=== PATIENT | female | born 1995 | race Two or more races ===

== ENCOUNTER 2016-10-24 14:07 | Emergency (ER) | payer BC ==
[~2016-10-24] VITALS: Ht 152.4 cm; Wt 78.0 kg
[~2016-10-24 14:07] MED LIST: LEVE500T6 PO
--- NOTE | 2016-10-24 14:17 | PHYS DOC ---
Past Medical History Past Medical History: Anxiety, Asthma, Seizure Additional Past Medical Histor: EPILEPSY Past Surgical History: No Surgical History Alcohol Use: None Drug Use: None Adult General Chief Complaint Chief Complaint: seizure HPI HPI Patient is a 21 year old female with a long-standing history of seizures who presents with one generalized seizure just prior to arrival while at work lasting less than 5 minutes was postictal and now is mentating normally. Denies headache or blurry vision. No trauma to the head. Patient says she ran out of her seizure medication yesterday but is not sure of the name. Review of Systems Review of Systems Constitutional: Denies fever or chills [] Eyes: Denies change in visual acuity, redness, or eye pain [] HENT: Denies nasal congestion or sore throat [] Respiratory: Denies cough or shortness of breath [] Cardiovascular: No additional information not addressed in HPI [] GI: Denies abdominal pain, nausea, vomiting, bloody stools or diarrhea [] : Denies dysuria or hematuria [] Musculoskeletal: Denies back pain or joint pain [] Integument: Denies rash or skin lesions [] Neurologic: Denies headache, focal weakness or sensory changes [] Endocrine: Denies polyuria or polydipsia [] Current Medications Current Medications Current Medications Medications (Trade) Dose Ordered Sig/Sridhar Start Time Stop Time Status Last Admin Dose Admin Levetiracetam 1000 mg/Sodium Chloride 110 ml @ 440 mls/hr 1X ONCE 10/24/16 15:00 10/24/16 15:14 DC 10/24/16 15:00 440 MLS/HR Lorazepam (Ativan) 0.5 mg 1X ONCE 10/24/16 14:30 10/24/16 14:31 DC 10/24/16 15:00 0.5 MG Allergies Allergies Allergies Coded Allergies Type Severity Reaction Last Updated Verified naproxen Allergy Intermediate 05/21/15 Yes Physical Exam Physical Exam Constitutional: Well developed, well nourished, no acute distress, non-toxic appearance. [] HENT: Normocephalic, atraumatic, bilateral external ears normal, oropharynx moist, no oral exudates, nose normal. No tongue laceration[] Eyes: PERRLA, EOMI, conjunctiva normal, no discharge. [] Neck: Normal range of motion, no tenderness, supple, no stridor. [] Cardiovascular:Heart rate regular rhythm, no murmur [] Lungs & Thorax: Bilateral breath sounds clear to auscultation [] Abdomen: Bowel sounds normal, soft, no tenderness, no masses, no pulsatile masses. [] Skin: Warm, dry, no erythema, no rash. [] Back: No tenderness, no CVA tenderness. [] Extremities: No tenderness, no cyanosis, no clubbing, ROM intact, no edema. [] Neurologic: Alert and oriented X 3, normal motor function, normal sensory function, no focal deficits noted. [] Psychologic: Affect normal, judgement normal, mood normal. [] Current Patient Data Vital Signs Vital Signs Date Time Temp Pulse Resp B/P (MAP) Pulse Ox O2 Delivery O2 Flow Rate FiO2 10/24/16 14:18 98.5 71 18 119/57 (77) 97 Room Air 98.5 Lab Values Laboratory Tests Test 10/24/16 14:37 10/24/16 14:38 POC Urine HCG, Qualitative Hcg negative (Negative) POC Hemoglobin 13.3 g/dL (12-15) POC Hematocrit 39 % (36-40) POC Sodium 142 mmol/L (135-145) POC Potassium 4.1 mmol/L (3.5-5.0) POC Chloride 105 mmol/L (98-110) POC Total CO2 25 mmol/L (23-32) Anion Gap 17 mmol/L (6-14) H POC Blood Urea Nitrogen 8 mg/dL (8-26) POC Creatinine 0.7 mg/dL (0.5-1.4) Glucose Level 82 mg/dL (70-99) POC Ionized Calcium (Juan Carlos) 1.17 mmol/L (1.13-1.32) Laboratory Tests 10/24/16 14:38 EKG EKG [] Radiology/Procedures Radiology/Procedures [] Course & Med Decision Making Course & Med Decision Making Pertinent Labs and Imaging studies reviewed. (See chart for details) Plan check i-STAT and urine . Plan to confirm medication she supposed to be on ever son here and write her prescription.[ Up-to-date [id number] nurse's discussed the case with the patient and contacted pharmacies and apparently the patient supposed to be on Keppra but has been taking her mother's seizure medications so we will load her with Keppra and write her prescription for the same.] Brielle Disclaimer Dragon Disclaimer This electronic medical record was generated, in whole or in part, using a voice recognition dictation system. Departure Departure Impression: Primary Impression: Seizures Additional Impression: Medical non-compliance Disposition: HOME, SELF-CARE Condition: STABLE Referrals: JUAN RAMON GUPTA MD (PCP) Patient Instructions: Seizure, Adult, [id number] Scripts Levetiracetam (KEPPRA) 500 Mg Tablet 500 MG PO BID, #60 TAB 3 Refills Prov: DEDRICK BOWMAN MD 10/24/16 Problem Qualifiers DEDIRCK BOWMAN MD Oct 24, 2016 14:17
[2016-10-24 14:18] VITALS: BP 119/57
[2016-10-24] MEDS ORDERED: LEVE500T56 PO (14:45)
[2016-10-24 14:51] LABS: POTASSIUM ISTAT 4.1 mmol/L (3.5-5.0)
== END 2016-10-24 15:40 | disposition home or self-care (01) ==
LOC: ER 14:07
DX: G40.909 Epilepsy, unspecified, not intractable, without status epilepticus (principal); F41.9 Anxiety disorder, unspecified; J45.909 Unspecified asthma, uncomplicated; Z91.19 Patient's noncompliance with other medical treatment and regimen; Z88.8 Allergy status to other drugs, medicaments and biological substances
CPT/HCPCS: 80047; 81025; 96374; 96375; 99284; J1953; J2060; 36415

== ENCOUNTER 2017-01-25 03:19 | Emergency (ER) | payer BC ==
[~2017-01-25] VITALS: Ht 152.4 cm; Wt 78.0 kg
[~2017-01-25 03:19] MED LIST changes: +LEVE500T56 PO
[2017-01-25 04:45] VITALS: BP 103/65
[2017-01-25] MEDS ORDERED: KETOROLAC 60 MG/2 ML INJ. IM ONE (05:00)
[2017-01-25] MEDS ORDERED: PROMETHAZINE IM 25 MG/ML VIAL IM ONE (05:00)
--- NOTE | 2017-01-25 06:25 | PHYS DOC ---
Past Medical History Past Medical History: Anxiety, Asthma, Seizure Additional Past Medical Histor: EPILEPSY Past Surgical History: Other Additional Past Surgical Histo: WISDOM TEETH Alcohol Use: None Drug Use: Marijuana Adult General Chief Complaint Chief Complaint: GENERALIZED BODY ACHES HPI HPI Patient is a 21 year old female with migraines since 13 y/o. she gets daily migraines x 3 weeks. she has appt with her doctor in february for migraines. she uses ibuprofen and tylenol with benadryl currently. she has also had 2 days of nausea and diarrhea. daughter has been sick as well. no neck pain, no fever. Review of Systems Review of Systems Constitutional: Denies fever or chills [] Eyes: Denies change in visual acuity, redness, or eye pain [] HENT: Denies nasal congestion or sore throat +headache, no neck pain Respiratory: Denies cough or shortness of breath [] Cardiovascular: No additional information not addressed in HPI [] GI:+nausea and diarrhea : Denies dysuria or hematuria [] Musculoskeletal: Denies back pain or joint pain [] Integument: Denies rash or skin lesions [] Neurologic: Denies headache, focal weakness or sensory changes [] Endocrine: Denies polyuria or polydipsia [] All other systems were reviewed and found to be within normal limits, except as documented in this note. Current Medications Current Medications Current Medications Medications (Trade) Dose Ordered Sig/Sridhar Start Time Stop Time Status Last Admin Dose Admin Ketorolac Tromethamine (Toradol Im) 60 mg 1X ONCE 01/25/17 05:00 01/25/17 05:01 DC 01/25/17 04:52 60 MG Promethazine HCl (Phenergan Im) 25 mg 1X ONCE 01/25/17 05:00 01/25/17 05:01 DC 01/25/17 04:52 25 MG Allergies Allergies Allergies Coded Allergies Type Severity Reaction Last Updated Verified naproxen Allergy Intermediate NAUSEA VOMITING 01/25/17 Yes Physical Exam Physical Exam Constitutional: Well developed, well nourished, no acute distress, non-toxic appearance. [] HENT: Normocephalic, atraumatic, bilateral external ears normal, oropharynx moist, no oral exudates, nose normal. +normal chin to chest. no stiff neck Eyes: PERRLA, EOMI, conjunctiva normal, no discharge. [] Neck: Normal range of motion, no tenderness, supple, no stridor. [] Cardiovascular:Heart rate regular rhythm, no murmur [] Lungs & Thorax: Bilateral breath sounds clear to auscultation [] Abdomen: Bowel sounds normal, soft, no tenderness, no masses, no pulsatile masses. [] Skin: Warm, dry, no erythema, no rash. [] Back: No tenderness, no CVA tenderness. [] Extremities: No tenderness, no cyanosis, no clubbing, ROM intact, no edema. [] Neurologic: Alert and oriented X 3, normal motor function, normal sensory function, no focal deficits noted. [] Psychologic: Affect normal, judgement normal, mood normal. [] Current Patient Data Vital Signs Vital Signs Date Time Temp Pulse Resp B/P (MAP) Pulse Ox O2 Delivery O2 Flow Rate FiO2 01/25/17 03:30 98.8 85 20 110/63 (79) 98 Room Air 98.8 Lab Values Laboratory Tests Test 01/25/17 04:05 POC Urine HCG, Qualitative Hcg negative (Negative) EKG EKG [] Radiology/Procedures Radiology/Procedures [] Course & Med Decision Making Course & Med Decision Making Pertinent Labs and Imaging studies reviewed. (See chart for details) pt responded well to toradol and phenergan. will try this at home. clear liquids for diarrhea [] Dragon Disclaimer Dragon Disclaimer This electronic medical record was generated, in whole or in part, using a voice recognition dictation system. Departure Departure Impression: Primary Impression: Migraine Additional Impression: Diarrhea Disposition: 01 HOME, SELF-CARE Condition: IMPROVED Referrals: JUAN RAMON GUPTA MD (PCP) Patient Instructions: Migraine Headache Additional Instructions: keep foods bland until diarrhea resolves. Clear liquids to stay hydrated. phenergan for nausea. at onset of migraine, take 3 ibuprofen, 1 phenergan and 1 benadryl and sleep. see your doctor at next appointment. return if any symptoms worsen. Problem Qualifiers ALEXY MCWILLIAMS MD Jan 25, 2017 06:24
== END 2017-01-25 06:30 | disposition home or self-care (01) ==
LOC: ER 03:19
DX: G43.909 Migraine, unspecified, not intractable, without status migrainosus (principal); R19.7 Diarrhea, unspecified; F41.9 Anxiety disorder, unspecified; J45.909 Unspecified asthma, uncomplicated; G40.909 Epilepsy, unspecified, not intractable, without status epilepticus; F12.10 Cannabis abuse, uncomplicated; Z88.6 Allergy status to analgesic agent
CPT/HCPCS: 81025; 96372; 99284; J1885; J2550

== ENCOUNTER 2017-11-28 19:46 | Emergency (ER) | payer BC ==
[~2017-11-28] VITALS: Ht 152.4 cm; Wt 78.0 kg
[2017-11-28] MEDS: IV NORMAL SALINE 1000ML BAG 1,000 ML IV ONE (21:02)
--- NOTE | 2017-11-28 21:35 | PHYS DOC ---
Past Medical History Past Medical History: Anxiety, Asthma, Seizure Additional Past Medical Histor: EPILEPSY Past Surgical History: Other Additional Past Surgical Histo: WISDOM TEETH Alcohol Use: None Drug Use: Marijuana Adult General Chief Complaint Chief Complaint: HEADACHE HPI HPI Patient is a 22 year old Female who presents to the emergency department today with complaints of a headache for the last five days. Patient states that the pain has increased today. She has tried taking Tylenol and ibuprofen at home with no relief of her symptoms. She states that this morning she has experienced nausea, vomiting, and photosensitivity with pain. Pain is mostly only right side of her head behind her right eye. Currently she rates the pain as a 7/10 on the pain scale. She denies any confusion, difficulty speaking, weakness, incoordination, numbness, or tingling. Review of Systems Review of Systems Constitutional: Denies fever or chills [] Eyes: Denies change in visual acuity, redness, or drainage; reports photosensitivity, and pain behind R eye[] HENT: Denies nasal congestion or sore throat [] Respiratory: Denies cough or shortness of breath [] Cardiovascular: No additional information not addressed in HPI [] GI: Denies abdominal pain; reports nausea and vomiting this morning [] Neurologic: Denies focal weakness or sensory changes; see HPI[] All other systems were reviewed and found to be within normal limits, except as documented in this note. Current Medications Current Medications Current Medications Medications (Trade) Dose Ordered Sig/[facility] Start Time Stop Time Status Last Admin Dose Admin Dexamethasone Sodium Phosphate (Decadron) 10 mg 1X ONCE 11/28/17 21:00 11/28/17 21:01 DC 11/28/17 21:41 10 MG Ketorolac Tromethamine (Toradol 15mg Vial) 15 mg 1X ONCE 11/28/17 21:00 11/28/17 21:01 DC 11/28/17 21:42 15 MG Prochlorperazine Edisylate (Compazine) 10 mg 1X ONCE 11/28/17 21:00 11/28/17 21:01 DC 11/28/17 21:41 10 MG Sodium Chloride 1,000 ml @ 1,000 mls/hr 1X ONCE 11/28/17 21:00 11/28/17 22:00 DC 11/28/17 21:02 1,000 MLS/HR Allergies Allergies Allergies Coded Allergies Type Severity Reaction Last Updated Verified naproxen Allergy Intermediate NAUSEA VOMITING 01/25/17 Yes Physical Exam Physical Exam Constitutional: Well developed, well nourished, no acute distress, non-toxic appearance. [] HENT: Normocephalic, atraumatic, bilateral external ears normal, oropharynx moist, no oral exudates, nose normal. [] Eyes: PERRLA, EOMI, conjunctiva normal, no discharge. [] Neck: Normal range of motion, no tenderness, supple, no stridor. [] Cardiovascular:Heart rate regular rhythm, no murmur [] Lungs & Thorax: Bilateral breath sounds clear to auscultation [] Abdomen: Bowel sounds normal, soft, no tenderness, no masses, no pulsatile masses. [] Skin: Warm, dry, no erythema, no rash. [] Back: No tenderness, no CVA tenderness. [] Extremities: No tenderness, no cyanosis, no clubbing, ROM intact, no edema. [] Neurologic: Alert and oriented X 3, normal motor function, normal sensory function, no focal deficits noted. [] Psychologic: Affect normal, judgement normal, mood normal. [] Current Patient Data Vital Signs Vital Signs Date Time Temp Pulse Resp B/P (MAP) Pulse Ox O2 Delivery O2 Flow Rate FiO2 11/28/17 21:50 60 16 100 11/28/17 19:55 98.6 100/50 (67) Room Air 98.6 Lab Values Laboratory Tests Test 11/28/17 20:55 POC Urine HCG, Qualitative Hcg negative (Negative) EKG EKG [] Radiology/Procedures Radiology/Procedures PROCEDURE: CT HEAD WO CONTRAST PQRS Compliance statement: One or more of the following individualized dose reduction techniques were utilized for this examination: 1. Automated exposure control. 2. Adjustment of the mA and/or kV according to patient size. 3. Use of iterative reconstruction technique. Indication:headache x 5 days, prior sent TECHNIQUE: CT head without IV contrast COMPARISON:12/12/2010 FINDINGS: No pathologic extra-axial or intra-axial fluid collection. The ventricles and basal cisterns are within normal limits. No acute intracranial bleed. No focal loss of henning-white differentiation. Orbits within normal limits. No suspicious calvarial lesion. Visualized paranasal sinuses and mastoid air cells are clear. IMPRESSION: No acute intracranial process.[] Course & Med Decision Making Course & Med Decision Making Pertinent Labs and Imaging studies reviewed. (See chart for details) dx: migraine RAMEY Ct head negative for acute findings. Pt was given 1L NS, 15 mg toradol IV, 10 mg decadron IV, and 10 mg of compazine IV. Reports relief of pain after medications. Pt instructed to go rest and increase fluids. RX for Imitrex written. Follow up with your doctor in 1-2 days. return to the ER if symptoms worsen. Pt verbalized an understanding of discharge, medications, follow-up, home care, and return to ED precautions, was in agreement with POC. [] Dragon Disclaimer Dragon Disclaimer This electronic medical record was generated, in whole or in part, using a voice recognition dictation system. Departure Departure Impression: Primary Impression: Migraine headache Disposition: HOME, SELF-CARE Condition: STABLE Referrals: JUAN RAMON GUPTA MD (PCP) Patient Instructions: Migraine Headache, [id number] Additional Instructions: Home to rest. Increase fluids. Fill prescription and use as directed. Follow up with your doctor in 1-2 days. return to the ER if symptoms worsen. Scripts Sumatriptan Succinate (IMITREX) 50 Mg Tablet 50 MG PO ONCE PRN for MIGRAINE HEADACHE MDD 200 for 3 Days, #10 TAB may repeat every 2 hours as needed for pain up to a maximum of 4 tablets in a 24 hour period Prov: FLY CANNON JEWEL WAXER 11/28/17 Problem Qualifiers Primary Impression: Migraine headache Migraine type: unspecified Status migrainosus presence: without status migrainosus Intractability: not intractable Qualified Codes: G43.909 - Migraine, unspecified, not intractable, without status migrainosus FLY CANNON JEWEL WAXER Nov 28, 2017 21:35
[2017-11-28] MEDS: PROCHLORPERAZINE 10 MG/2 ML VIAL. IV ONE (21:41)
[2017-11-28] MEDS: DEXAMETHASONE SOD PHOS 20 MG/5 ML VIAL. IV ONE (21:41)
[2017-11-28] MEDS: KETOROLAC 15 MG/ML VIAL. IV ONE (21:42)
[2017-11-28 21:50] VITALS: BP 110/57
[2017-11-28] MEDS ORDERED: SUMA50TA3 PO (22:12)
== END 2017-11-28 22:29 | disposition home or self-care (01) ==
LOC: ER 19:46
DX: G43.909 Migraine, unspecified, not intractable, without status migrainosus (principal); F41.9 Anxiety disorder, unspecified; J45.909 Unspecified asthma, uncomplicated; Z88.8 Allergy status to other drugs, medicaments and biological substances
CPT/HCPCS: 70450; 81025; 96374; 96375; 99284; J0780; J1100; J1885; J7030

== ENCOUNTER 2018-08-28 08:55 | Emergency (ER) | payer BC ==
[~2018-08-28] VITALS: Ht 154.9 cm; Wt 77.1 kg
[~2018-08-28 08:55] MED LIST changes: +SUMA50TA3 PO
[2018-08-28 09:10] VITALS: BP 117/56
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
--- NOTE | 2018-08-28 10:29 | RAD ---
EXAM: AP and lateral views of the right tibia/fibula DATE: 08/28/2018 9:20 AM INDICATION: Posterior right calf pain COMPARISON: No Prior FINDINGS:/IMPRESSION No evidence of acute fracture or dislocation. Joint spaces are preserved without significant degenerative/proliferative change. No joint effusion. Electronically signed by: Toro Harley MD (08/28/2018 10:26 AM) [facility]
[2018-08-28] MEDS ORDERED: CYCL10TA2 PO (10:48)
== END 2018-08-28 10:54 | disposition home or self-care (01) ==
LOC: ER 08:55
DX: S13.8XXA Sprain of joints and ligaments of other parts of neck, initial encounter (principal); M79.661 Pain in right lower leg; F41.9 Anxiety disorder, unspecified; J45.909 Unspecified asthma, uncomplicated; Z88.8 Allergy status to other drugs, medicaments and biological substances; V47.5XXA Car driver injured in collision with fixed or stationary object in traffic accident, initial encounter; Y93.89 Activity, other specified; Y92.410 Unspecified street and highway as the place of occurrence of the external cause; Y99.8 Other external cause status
CPT/HCPCS: 72040; 73590; 99284

== ENCOUNTER 2019-10-06 03:35 | Inpatient (IN) | payer BC, OTHER ==
[~2019-10-06] VITALS: Ht 152.4 cm; Wt 68.1 kg
[~2019-10-06 03:35] MED LIST changes: +CYCL10TA2 PO
[2019-10-06 03:50] LABS: BILIRUBIN,URINE NEGATIVE (NEG); CLARITY,URINE CLEAR; COLOR,URINE YELLOW; NITRITE,URINE NEGATIVE (NEG); PROTEIN,URINE NEGATIVE (NEG-TRACE)
[2019-10-06 03:55] LABS: BACTERIA,URINE MANY /HPF (0-FEW); SQUAMOUS EPITHELIAL CELL,UR MOD /LPF; WBC,URINE TNTC /HPF (0-4)
[2019-10-06 03:56] LABS: AMORPHOUS SEDIMENT,UR PRESENT /HPF; TRICHOMONAS,URINE PRESENT
[2019-10-06] MEDS ORDERED: IV NORMAL SALINE 1000ML BAG 2,040 ML IV SCH (04:25)
--- NOTE | 2019-10-06 04:30 | PHYS DOC ---
Past Medical History Past Medical History: Anxiety, Asthma, Depression, Seizure, Other Additional Past Medical Histor: EPILEPSY (LIDIAYulySANIA ) Past Surgical History: Other Additional Past Surgical Histo: WISDOM TEETH (LIDIAYulySANIA ) Smoking Status: Current Every Day Smoker Alcohol Use: None Drug Use: Marijuana (SANIA LAWSON ) General Adult EDM: Chief Complaint: ABDOMINAL PAIN HPI: HPI: The history was obtained from the patient. Patient is a 24-year-old female with PMH depression, anxiety who presents with a chief complaint of abdominal pain. Patient states she has had abdominal pain that began approximate 12 hours ago.. She does note blood in her stool. States it is streaked in the stool. States the abdominal pain is sharp in nature nonradiating. States pain is been constant. She does note nausea without vomiting. She denies any objective fevers. Does note dysuria and polyuria. Denies any hematuria. Denies syncope. Denies cough. Denies shortness of breath or chest pain. Denies any previous abdominal surgeries. Has not tried medicine at home to help. No other complaints. (JONATHANSANIA ) Review of Systems: Review of Systems: Constitutional: Denies fever or chills. [] Eyes: Denies change in visual acuity. [] HENT: Denies nasal congestion or sore throat. [] Respiratory: Denies cough or shortness of breath. [] Cardiovascular: Denies chest pain or edema. [] GI: Positive for abdominal pain, nausea, blood in stool. : Positive for vaginal bleeding Musculoskeletal: Denies back pain or joint pain. [] Integument: Denies rash. [] Neurologic: Denies headache, focal weakness or sensory changes. [] Endocrine: Denies polyuria or polydipsia. [] Lymphatic: Denies swollen glands. [] Psychiatric: Denies depression or anxiety. [] (ANGELES LAWSONORY Pranav AUSTIN) Heart Score: Risk Factors: Risk Factors: DM, Current or recent (<one month) smoker, HTN, HLP, family history of CAD, obesity. Risk Scores: Score 0 - 3: 2.5% MACE over next 6 weeks - Discharge Home Score 4 - 6: 20.3% MACE over next 6 weeks - Admit for Clinical Observation Score 7 - 10: 72.7% MACE over next 6 weeks - Early Invasive Strategies (SANIA LAWSON DO) Allergies: Allergies: Allergies Coded Allergies Type Severity Reaction Last Updated Verified naproxen Allergy Intermediate NAUSEA VOMITING 01/25/17 Yes (SANIA LAWSON DO) Physical Exam: PE: Constitutional: Well developed, well nourished, no acute distress, non-toxic appearance. [] HENT: Normocephalic, atraumatic, bilateral external ears normal, oropharynx moist, no oral exudates, nose normal. [] Eyes: PERRLA, EOMI, conjunctiva normal, no discharge. [] Neck: Normal range of motion, no tenderness, supple, no stridor. [] Cardiovascular:Heart rate regular rhythm, no murmur [] Lungs & Thorax: Bilateral breath sounds clear to auscultation [] Abdomen: Abdomen diffusely tender worse in the lower quadrants. Involuntary guarding appreciated. No rigidity appreciated. : Purulent discharge with scant blood on pelvic exam. Positive CMT. Skin: Warm, dry, no erythema, no rash. [] Back: No tenderness, no CVA tenderness. [] Extremities: No tenderness, no cyanosis, no clubbing, ROM intact, no edema. [] Neurologic: Alert and oriented X 3, normal motor function, normal sensory function, no focal deficits noted. [] Psychologic: Affect normal, judgement normal, mood normal. [] (SANIA LAWSON DO) PE: Constitutional: Well developed, well nourished, no acute distress, non-toxic appearance HENT: Normocephalic, atraumatic Eyes: Conjunctiva normal, no discharge Neck: Normal range of motion, supple Lungs & Thorax: No respiratory distress, equal chest rise and fall Abdomen: Soft, diffuse abdominal tenderness, voluntary guarding Skin: Warm, dry, no erythema, no rash Back: No tenderness, no CVA tenderness Extremities: No tenderness, ROM intact, no edema Neurologic: Alert and oriented X 3, no focal deficits noted Psychologic: Affect normal, judgment normal (DANNA ROJO DO) Current Patient Data: Labs: Laboratory Tests Test 10/06/19 03:40 10/06/19 03:47 Urine Collection Type Unknown Urine Color Yellow Urine Clarity Clear Urine pH 6.0 (<5.0-8.0) Urine Specific [place] 1.020 (1.000-1.030) Urine Protein Negative mg/dL (NEG-TRACE) Urine Glucose (UA) Negative mg/dL (NEG) Urine Ketones (Stick) Negative mg/dL (NEG) Urine Blood Small (NEG) Urine Nitrite Negative (NEG) Urine Bilirubin Negative (NEG) Urine Urobilinogen Dipstick 1.0 mg/dL (0.2 mg/dL) Urine Leukocyte Esterase Large (NEG) Urine RBC 6-10 /HPF (0-2) Urine WBC Tntc /HPF (0-4) Urine Squamous Epithelial Cells Mod /LPF Urine Amorphous Sediment Present /HPF Urine Bacteria Many /HPF (0-FEW) Urine Mucus Mod /LPF Urine Trichomonas Present POC Urine HCG, Qualitative Hcg negative (Negative) Laboratory Tests Test 10/06/19 03:40 10/06/19 03:47 10/06/19 04:30 Urine Collection Type Unknown Urine Color Yellow Urine Clarity Clear Urine pH 6.0 Urine Specific [place] 1.020 Urine Protein Negative mg/dL Urine Glucose (UA) Negative mg/dL Urine Ketones (Stick) Negative mg/dL Urine Blood Small Urine Nitrite Negative Urine Bilirubin Negative Urine Urobilinogen Dipstick 1.0 mg/dL Urine Leukocyte Esterase Large Urine RBC 6-10 /HPF Urine WBC Tntc /HPF Urine Squamous Epithelial Cells Mod /LPF Urine Amorphous Sediment Present /HPF Urine Bacteria Many /HPF Urine Mucus Mod /LPF Urine Trichomonas Present Bedside Urine HCG, Qualitative Hcg negative White Blood Count 14.1 x10^3/uL Red Blood Count 4.07 x10^6/uL Hemoglobin 12.0 g/dL Hematocrit 36.1 % Mean Corpuscular Volume 89 fL Mean Corpuscular Hemoglobin 30 pg Mean Corpuscular Hemoglobin Concent 33 g/dL Red Cell Distribution Width 13.4 % Platelet Count 241 x10^3/uL Neutrophils (%) (Auto) 84 % Lymphocytes (%) (Auto) 9 % Monocytes (%) (Auto) 6 % Eosinophils (%) (Auto) 0 % Basophils (%) (Auto) 0 % Neutrophils # (Auto) 11.9 x10^3/uL Lymphocytes # (Auto) 1.3 x10^3/uL Monocytes # (Auto) 0.8 x10^3/uL Eosinophils # (Auto) 0.0 x10^3/uL Basophils # (Auto) 0.0 x10^3/uL Sodium Level 138 mmol/L Potassium Level 3.9 mmol/L Chloride Level 107 mmol/L Carbon Dioxide Level 24 mmol/L Anion Gap 7 Blood Urea Nitrogen 10 mg/dL Creatinine 0.7 mg/dL Estimated GFR (Cockcroft-Gault) 102.0 BUN/Creatinine Ratio 14 Glucose Level 116 mg/dL Lactic Acid Level 0.9 mmol/L Calcium Level 8.4 mg/dL Total Bilirubin 0.4 mg/dL Aspartate Amino Transf (AST/SGOT) 14 U/L Alanine Aminotransferase (ALT/SGPT) 16 U/L Alkaline Phosphatase 60 U/L Total Protein 7.2 g/dL Albumin 3.3 g/dL Albumin/Globulin Ratio 0.8 Current Medications Medications (Trade) Dose Ordered Sig/Sridhar Route PRN Reason Start Time Stop Time Status Last Admin Dose Admin Sodium Chloride 2,040 ml @ 2,040 mls/hr Q1H IV 10/06/19 04:25 10/06/19 04:37 DC 10/06/19 04:36 Sodium Chloride 1,000 ml @ 1,000 mls/hr Q1H IV 10/06/19 04:37 10/06/19 06:13 DC 10/06/19 05:22 Cefoxitin Sodium (Mefoxin) 2 gm 1X ONCE IVP 10/06/19 05:00 10/06/19 05:01 DC 10/06/19 05:00 Doxycycline Hyclate 100 mg/ Dextrose 100 ml @ 50 mls/hr 1X ONCE IV 10/06/19 05:00 10/06/19 06:59 10/06/19 05:05 Hydromorphone HCl (Dilaudid) 1 mg 1X ONCE IVP 10/06/19 05:00 10/06/19 05:01 DC 10/06/19 04:57 Iohexol (Omnipaque 300 Mg/ml) 75 ml 1X ONCE IV 10/06/19 05:00 10/06/19 05:01 DC 10/06/19 05:00 Metronidazole 100 ml @ 100 mls/hr 1X ONCE IV 10/06/19 05:00 10/06/19 05:59 DC 10/06/19 04:58 Info (CONTRAST GIVEN -- Rx MONITORING) 1 each PRN DAILY PRN MC SEE COMMENTS 10/06/19 05:00 10/08/19 04:59 Norepinephrine Bitartrate 8 mg/ Dextrose 258 ml @ 13.158 mls/ hr CONT PRN IV PER PROTOCOL 10/06/19 05:15 10/06/19 05:22 Ondansetron HCl (Zofran) 8 mg 1X ONCE IVP 10/06/19 05:45 10/06/19 05:46 DC 10/06/19 05:43 Sodium Chloride 1,000 ml @ 1,000 mls/hr 1X ONCE IV 10/06/19 06:45 10/06/19 07:44 10/06/19 06:37 Vital Signs: Vital Signs Date Time Temp Pulse Resp B/P (MAP) Pulse Ox O2 Delivery O2 Flow Rate FiO2 10/06/19 03:59 98.6 108 16 95/52 (66) 99 Room Air 98.6 (SANIA LAWSON DO) EKG: EKG: [] EKG consistent with sinus tachycardia. Ventricular rate of 107 bpm. [place] normal. Intervals normal. No acute ischemic changes noted. (SANIA LAWSON DO) Radiology/Procedures: Radiology/Procedures: [facility] [address] [place] [address] IMAGING REPORT Signed PATIENT: BRITTANEY CAZARES MACCOUNT: [id number] : 1995 LOCATION: ER AGE: 24 SEX: F EXAM STATUS: REG ER ORD. PHYSICIAN: SANIA LAWSON DO REASON: lower ad pain. eval for TOA and torsion PROCEDURE: PELVIS W/TV INDICATION: Reason: lower ad pain. eval for TOA and torsion / Spl. Instructions: / History: COMPARISON: None. TECHNIQUE: Grayscale and color ultrasound images uterus and adnexa. Transvaginal images were obtained. FINDINGS: Uterus: 86 x 56 x 37 mm. Endometrial Stripe: 5 mm. Right Ovary: 30 x 19 x 19 mm. Left Ovary: 31 x 25 x 21 mm. Vascular flow identified to bilateral ovaries. Hypoechoic lesion at the cervix which can be seen with nabothian cyst. There is a small amount of suspected complex fluid IMPRESSION: * Vascular flow seen to the bilateral ovaries. * Hypoechoic lesions at cervix which are commonly from nabothian cysts. * Suspect a small amount of complex fluid. Electronically signed by: Albert Castro MD (10/06/2019 6:42 AM) [id number] DICTATED and SIGNED BY: ALBERT CASTRO MD DATE: 10/06/19 0642 [] (SANIA LAWSON DO) Radiology/Procedures: PROCEDURE: PELVIS W/TV INDICATION: Reason: lower ad pain. eval for TOA and torsion / Spl. Instructions: / History: COMPARISON: None. TECHNIQUE: Grayscale and color ultrasound images uterus and adnexa. Transvaginal images were obtained. FINDINGS: Uterus: 86 x 56 x 37 mm. Endometrial Stripe: 5 mm. Right Ovary: 30 x 19 x 19 mm. Left Ovary: 31 x 25 x 21 mm. Vascular flow identified to bilateral ovaries. Hypoechoic lesion at the cervix which can be seen with nabothian cyst. There is a small amount of suspected complex fluid IMPRESSION: * Vascular flow seen to the bilateral ovaries. * Hypoechoic lesions at cervix which are commonly from nabothian cysts. * Suspect a small amount of complex fluid. Electronically signed by: Albert Castro MD (10/06/2019 6:42 AM) [id number] PROCEDURE: CT ABD PELV W/ IV CONTRST ONLY INDICATION: Reason: lower abdominal pain with vaginal discharge / Spl. Instructions: OMNI 300, 75 ML IV / History: COMPARISON: None. TECHNIQUE: Axial CT images obtained through the abdomen and pelvis with contrast. One or more of the following individualized dose reduction techniques were utilized for this examination: 1. Automated exposure control; 2. Adjustment of the mA and/or kV according to patient size; 3. Use of iterative reconstruction technique. FINDINGS: Dependent atelectasis at lung bases. Abdominal aorta is not aneurysmal. Small fat-containing umbilical hernia. Mild low density at portal triads. Small amount of motion limits evaluation of the gallbladder. No peripancreatic fluid collection. Spleen unremarkable. No hydronephrosis. Urinary bladder is partially distended. No dilated loops of bowel to suggest obstruction. The colon is not distended around the hepatic flexure with some mild prominence of the wall the area. No periappendiceal inflammatory changes. Fullness of the right adnexa. IMPRESSION: * No evidence of bowel obstruction or appendicitis. * The colon is not very distended near hepatic flexure with prominence the wall. The most likely cause is lack of distention but would correlate with symptoms to ensure that there is not a pathologic process such as colitis contributing. Electronically signed by: Albert Castro MD (10/06/2019 6:56 AM) [id number] (DANNA ROJO DO) Course & Med Decision Making: Course & Med Decision Making Pertinent Labs and Imaging studies reviewed. (See chart for details) Patient is a 24-year-old female who presents with chief complaint of lower abdominal pain. Initial vital signs notable for tachycardia and hypotension. Approximate blood pressure 90/50. She did remain alert and oriented. Sepsis work-up was initiated. Blood cultures pending. 30 cc/kg fluid bolus administered. Patient did remain slightly hypotensive. Low-dose of norepinephrine was administered. Pelvic exam notable for purulent discharge and cervical motion tenderness. I am concerned for potential of pelvic inflammatory disease versus tubo-ovarian abscess. Ultrasound does show complex fluid collection in the left adnexa. CT abdomen pelvis imaging pending. Patient was given Flagyl for trichomonas being positive on urinalysis. She was also given doxycycline and cefoxitin. Patient's blood pressure has improved significantly on Levophed. This will slowly be weaned in the emergency department. She continues to remain alert and oriented. I do feel she requires hospitalization for further antibiotics. At this time CT imaging results are pending. I have signed out the patient's emergency department care to Dr. Rojo. We discussed the history, physical exam findings, completed and pending laboratory results and imaging studies. We have also discussed the current treatment plan and expected clinical course. Please refer to chart for the patient's remaining emergency department course, final disposition, and clinical impression(s). (SANIA LWASON DO) Course & Med Decision Making 0600- Sign out received from Dr. Lawson for patient with abdominal pain. UA with signs of infection vs contamination. Pelvic exam positive for CMT. Tr ichomanoasis noted. Emipric antibiotics given previously. Patient also noted to have hypotension for which levophed and IVF boluses were given. Levophed was only temporary as patient able to maintain stable BP without. Pelvic US with some complex fluid and nabothian cysts. CT abd/pelvis pending at time of sign out. CT without acute surgical process. Cannot exclude colitis. Patient seen and evaluated by myself. Dr. Lawson previously discussed admission with Dr. Crisostomo (hospitalist) who is in agreement with admission. Admission orders placed and signed. Discussed findings and plan with patient, who acknowledges understanding and agreement. (DANNA ROJO DO) Dragon Disclaimer: Dragon Disclaimer: This electronic medical record was generated, in whole or in part, using a voice recognition dictation system. (SANIA LAWSON DO) Departure Departure Impression: Primary Impression: Abdominal pain Qualified Codes: R10.30 - Lower abdominal pain, unspecified Additional Impressions: Trichimoniasis UTI (urinary tract infection) Qualified Codes: N30.00 - Acute cystitis without hematuria Hypotension Qualified Codes: I95.9 - Hypotension, unspecified Disposition: ADMITTED INPATIENT Admitting Physician: MARY JANE Shore) (DANNA ROJO DO) Condition: STABLE Referrals: JUAN RAMON GUPTA MD (PCP) Justicifation of Admission Dx: Justifications for Admission: Justification of Admission Dx: Yes Comments: abdominal pain, UTI, leukocytosis, (SANIA LAWSON DO) Justification of Admission Dx: Yes Comments: Intractable abdominal pain, UTI, trichomonas, hypotension (DANNA ROJO DO) SANIA LAWSON DO Oct 06, 2019 04:30 DANNA ROJO DO Oct 06, 2019 07:28
[2019-10-06 04:38] LABS: BASO % 0 % (0-3); EOS % 0 % (0-3); HEMATOCRIT 36.1 % (36.0-47.0); LYMPH # 1.3 x10^3/uL (1.0-4.8); LYMPH % 9 % (24-48); MEAN CORPUSCULAR HEMOGLOBIN 30 pg (25-35); MEAN CORPUSCULAR HGB CONC 33 g/dL (31-37); MEAN CORPUSCULAR VOLUME 89 fL (79-100); MONO # 0.8 x10^3/uL (0.0-1.1); MONO % 6 % (0-9); NEUT # 11.9 x10^3/uL (1.8-7.7); NEUT % 84 % (31-73); PLATELET COUNT 241 x10^3/uL (140-400); RED BLOOD COUNT 4.07 x10^6/uL (3.50-5.40); RED CELL DISTRIBUTION WIDTH 13.4 % (11.5-14.5); WHITE BLOOD COUNT 14.1 x10^3/uL (4.0-11.0)
[2019-10-06 04:46] LABS: CALCIUM 8.4 mg/dL (8.5-10.1); CREATININE 0.7 mg/dL (0.6-1.0); POTASSIUM 3.9 mmol/L (3.5-5.1)
[2019-10-06 04:52] LABS: ALBUMIN 3.3 g/dL (3.4-5.0); ALBUMIN/GLOBULIN RATIO 0.8 (1.0-1.7); TOTAL BILIRUBIN 0.4 mg/dL (0.2-1.0); TOTAL PROTEIN 7.2 g/dL (6.4-8.2)
[2019-10-06] MEDS ORDERED: HYDROmorphone 2 MG/ML VIAL IVP ONE ×2 (05:00→09:45)
[2019-10-06] MEDS ORDERED: cefOXitin SODIUM IV Push 2 GM VIAL. IVP ONE (05:00)
[2019-10-06] MEDS ORDERED: DOXYCYCLINE HYCLATE 100 MG in IV DEXTROSE 5% 100ML 100 ML IV ONE (05:00)
[2019-10-06] MEDS ORDERED: CONTRAST GIVEN. MC PRN (05:00)
[2019-10-06] MEDS ORDERED: IOHEXOL 300 MG/ML 100ML VIAL. IV ONE (05:00)
[2019-10-06] MEDS ORDERED: NOREPINEPHRINE VIAL 8 MG in IV DEXTROSE 5% 250 ML IV PRN (05:15)
[2019-10-06] MEDS: IV NORMAL SALINE 1000ML BAG 1,000 ML IV SCH ×2 (05:22→05:37)
[2019-10-06] MEDS ORDERED: ONDANSETRON PF 4 MG/2 ML VIAL. IVP ONE (05:45)
[2019-10-06] MEDS ORDERED: IV NORMAL SALINE 1000ML BAG 1,000 ML IV ONE (06:45)
--- NOTE | 2019-10-06 06:45 | RAD ---
INDICATION: Reason: lower ad pain. eval for TOA and torsion / Spl. Instructions: / History: COMPARISON: None. TECHNIQUE: Grayscale and color ultrasound images uterus and adnexa. Transvaginal images were obtained. FINDINGS: Uterus: 86 x 56 x 37 mm. Endometrial Stripe: 5 mm. Right Ovary: 30 x 19 x 19 mm. Left Ovary: 31 x 25 x 21 mm. Vascular flow identified to bilateral ovaries. Hypoechoic lesion at the cervix which can be seen with nabothian cyst. There is a small amount of suspected complex fluid IMPRESSION: * Vascular flow seen to the bilateral ovaries. * Hypoechoic lesions at cervix which are commonly from nabothian cysts. * Suspect a small amount of complex fluid. Electronically signed by: Elgin Condon MD (10/06/2019 6:42 AM) [id number]
--- NOTE | 2019-10-06 07:00 | RAD ---
INDICATION: Reason: lower abdominal pain with vaginal discharge / Spl. Instructions: OMNI 300, 75 ML IV / History: COMPARISON: None. TECHNIQUE: Axial CT images obtained through the abdomen and pelvis with contrast. One or more of the following individualized dose reduction techniques were utilized for this examination: 1. Automated exposure control; 2. Adjustment of the mA and/or kV according to patient size; 3. Use of iterative reconstruction technique. FINDINGS: Dependent atelectasis at lung bases. Abdominal aorta is not aneurysmal. Small fat-containing umbilical hernia. Mild low density at portal triads. Small amount of motion limits evaluation of the gallbladder. No peripancreatic fluid collection. Spleen unremarkable. No hydronephrosis. Urinary bladder is partially distended. No dilated loops of bowel to suggest obstruction. The colon is not distended around the hepatic flexure with some mild prominence of the wall the area. No periappendiceal inflammatory changes. Fullness of the right adnexa. IMPRESSION: * No evidence of bowel obstruction or appendicitis. * The colon is not very distended near hepatic flexure with prominence the wall. The most likely cause is lack of distention but would correlate with symptoms to ensure that there is not a pathologic process such as colitis contributing. Electronically signed by: Elgin Condon MD (10/06/2019 6:56 AM) [id number]
--- NOTE | 2019-10-06 07:16 | EKG ---
[facility] [address] [place] [address] Test Date: 2019-10-06 Test Time: 05:36:40 Pat Name: BRITTANEY CAZARES Department: Room: Gender: F [place] [employer]: : 1995 Requested By: SANIA CASTILLO Order Number: [id number] Reading MD: Measurements Intervals Jones Rate: 107 P: 43 NH: 120 QRS: 45 QRSD: 72 T: 34 QT: 328 QTc: 437 Interpretive Statements SINUS TACHYCARDIA OTHERWISE NORMAL ECG RI6.02 No previous ECG available for comparison
[2019-10-06] MEDS ORDERED: fentaNYL PF VIAL 100 MCG/2 ML VIAL IV ONE (07:30)
[2019-10-06] MEDS ORDERED: ONDANSETRON PF 4 MG/2 ML VIAL. IV PRN ×2 (07:45→10:45)
[2019-10-06] MEDS ORDERED: fentaNYL PF VIAL 100 MCG/2 ML VIAL IV PRN (07:45)
--- NOTE | 2019-10-06 07:54 | PDOC1 ---
History and Physical Date of Admission Date of Admission DATE: 10/06/19 TIME: 07:50 Identification/Chief Complaint Chief Complaint Abdominal pain Source Source: Patient History of Present Illness History of Present Illness Ms Alanis is a 24yo F w/ PMHx Anxiety with depression, Asthma, epilepsy, smoker who presents with chief complaint of lower abdominal pain starting suddenly at 1700 on 10/05/2019 with associated nausea and vomiting. Initial vital signs notable for tachycardia and hypotension. Approximate blood pressure 90/50. She did remain alert and oriented. Sepsis work-up was initiated. Blood cultures obtained. In ED Pelvic exam notable for purulent discharge and cervical motion tenderness concerning for PID. Patient was given Flagyl for trichomonas being positive on urinalysis. Given cefoxitin and doxycycline for concern for PID. UA with signs of infection vs contamination. Pelvic exam positive for CMT. Trichomanoasis noted. Emipric antibiotics given previously. Patient also noted to have hypotension for which levophed and IVF boluses were given. Levophed was only temporary as patient able to maintain stable BP after 3rd liter of NSS was given. Labs significant for WBC 14.1 Pelvic US with some complex fluid and nabothian cysts. CT abd/pelvis without acute surgical process. Cannot exclude colitis. Patient with diarrhea x2 in ED. EKG consistent with sinus tachycardia. Ventricular rate of 107 bpm. [place] normal. Intervals normal. No acute ischemic changes noted. Admitted for further treatment Past Medical History CENTRAL NERVOUS SYSTEM: Seizure Psych: Anxiety, Depression Past Surgical History Past Surgical History: Other ([place] teeth extraction) Family History Family History: Hypertension Social History Smoke: 1 pack per day ALCOHOL: none Drugs: None Current Problem List Problem List Problems Medical Problems: (1) Abdominal pain Status: Acute (2) Hypotension Status: Acute (3) Trichimoniasis Status: Acute (4) UTI (urinary tract infection) Status: Acute Current Medications Current Medications Current Medications Sodium Chloride 2,040 ml @ 2,040 mls/hr Q1H IV Last administered on 10/06/19at 04:36; Start 10/06/19 at 04:25; Stop 10/06/19 at 04:37; Status DC Sodium Chloride 1,000 ml @ 1,000 mls/hr Q1H IV Last administered on 10/06/19at 05:22; Start 10/06/19 at 04:37; Stop 10/06/19 at 06:13; Status DC Cefoxitin Sodium (Mefoxin) 2 gm 1X ONCE IVP Last administered on 10/06/19at 05:00; Start 10/06/19 at 05:00; Stop 10/06/19 at 05:01; Status DC Doxycycline Hyclate 100 mg/ Dextrose 100 ml @ 50 mls/hr 1X ONCE IV Last administered on 10/06/19at 05:05; Start 10/06/19 at 05:00; Stop 10/06/19 at 06:59; Status DC Hydromorphone HCl (Dilaudid) 1 mg 1X ONCE IVP Last administered on 10/06/19at 04:57; Start 10/06/19 at 05:00; Stop 10/06/19 at 05:01; Status DC Iohexol (Omnipaque 300 Mg/ml) 75 ml 1X ONCE IV Last administered on 10/06/19at 05:00; Start 10/06/19 at 05:00; Stop 10/06/19 at 05:01; Status DC Metronidazole 100 ml @ 100 mls/hr 1X ONCE IV Last administered on 10/06/19at 04:58; Start 10/06/19 at 05:00; Stop 10/06/19 at 05:59; Status DC Info (CONTRAST GIVEN -- Rx MONITORING) 1 each PRN DAILY PRN MC SEE COMMENTS; Start 10/06/19 at 05:00; Stop 10/08/19 at 04:59 Norepinephrine Bitartrate 8 mg/ Dextrose 258 ml @ 13.158 mls/ hr CONT PRN IV PER PROTOCOL Last administered on 10/06/19at 05:22; Start 10/06/19 at 05:15 Ondansetron HCl (Zofran) 8 mg 1X ONCE IVP Last administered on 10/06/19at 05:43; Start 10/06/19 at 05:45; Stop 10/06/19 at 05:46; Status DC Sodium Chloride 1,000 ml @ 1,000 mls/hr 1X ONCE IV Last administered on 10/06/19at 06:37; Start 10/06/19 at 06:45; Stop 10/06/19 at 07:44; Status DC Fentanyl Citrate (Fentanyl 2ml Vial) 50 mcg 1X ONCE IV Last administered on 10/06/19at 07:30; Start 8/31/20 at 07:30; Stop 10/06/19 at 07:31; Status DC Ondansetron HCl (Zofran) 4 mg PRN Q8HRS PRN IV NAUSEA/VOMITING; Start 10/06/19 at 07:45; Stop 10/07/19 at 07:44 Fentanyl Citrate (Fentanyl 2ml Vial) 50 mcg Q2HR PRN IV PAIN; Start 10/06/19 at 07:45; Stop 10/07/19 at 07:44 Active Scripts Active Cyclobenzaprine Hcl 10 Mg Tablet 1 Tab PO TID Imitrex (Sumatriptan Succinate) 50 Mg Tablet 50 Mg PO ONCE PRN MDD 200 3 Days may repeat every 2 hours as needed for pain up to a maximum of 4 tablets in a 24 hour period Keppra (Levetiracetam) 500 Mg Tablet 500 Mg PO BID Reported Levetiracetam 500 Mg Tablet 500 Mg PO BID Allergies Allergies: Coded Allergies: naproxen (Verified Allergy, Intermediate, NAUSEA VOMITING, 01/25/17) CAN TAKE IBUPROFEN ROS General: YES: Fatigue, Malaise; No: Chills, Night Sweats, Appetite, Other PSYCHOLOGICAL ROS: YES: Anxiety; No: Behavioral Disorder, Concentration difficultie, Decreased libido, Depression, Disorientation, Hallucinations, Hostility, Irritablity, Memory difficulties, Mood Swings, Obsessive thoughts, Physical abuse, Sexual abuse, Sle ep disturbances, Suicidal ideation, Other Eyes: No Blurry vision, No Decreased vision, No Double vision, No Dry eyes, No Excessive tearing, No Eye Pain, No Itchy Eyes, No Loss of vision, No Photophobia, No Scotomata, No Uses contacts, No Uses glasses, No Other HEENT: No: Heacaches, Visual Changes, Hearing change, Nasal congestion, Nasal d ischarge, Oral lesions, Sinus pain, Sore Throat, Epistaxis, Sneezing, Snoring, Tinnitus, Vertigo, Vocal changes, Other ALLERGY AND IMMUNOLOGY: No: Hives, Insect Bite Sensitivity, Itchy/Watery Eyes, Nasal Congestion, Post Nasal Drip, Seasonal Allergies, Other Hematological and Lymphatic: No: Bleeding Problems, Blood Clots, Blood Transfusions, Brusing, Night Sweats, Pallor, Swollen Lymph Nodes, Other ENDOCRINE: No: Breast Changes, Galactorrhea, Hair Pattern Changes, Hot Flashes, Malaise/lethargy, Mood Swings, Palpitations, Polydipsia/polyuria, Skin Changes, Temperature Intolerance, Unexpected Weight Changes, Other Breast: No New/Changing Breast Lumps, No Nipple changes, No Nipple discharge, No Other Respiratory: No: Cough, Hemoptysis, Orthopnea, Pleuritic Pain, Shortness of zach ath, SOB with excertion, Sputum Changes, Stridor, Tachypnea, Wheezing, Other Cardiovascular: No Chest Pain, No Palpitations, No Orthopnea, No Paroxysmal Noc. Dyspnea, No Edema, No Lt Headedness, No Other Gastrointestinal: Yes Nausea, Yes Vomiting, Yes Abdominal Pain, Yes Diarrhea; No Constipation, No Melena, No Hematochezia, No Other Genitourinary: YES Dysuria, YES Frequency; No Incontinence, No Hematuria, No Retention, No Discharge, No Urgency, No Pain, No Flank Pain, No Other, No , No , No , No , No , No , No Musculoskeletal: No Gait Disturbance, No Joint Pain, No Joint Stiffness, No Joint Swelling, No Muscle Pain, No Muscular Weakness, No Pain In:, No Swelling In:, No Other Neurological: No Behavorial Changes, No Bowel/Bladder ControlChng, No Confusion, No Dizziness, No Gait Disturbance, No Headaches, No Impaired Coord/balance, No Memory Loss, No Numbness/Tingling, No Seizures, No Speech Problems, No Tremors, No Visual Changes, No Weakness, No Other Skin: No Dry Skin, No Eczema, No Hair Changes, No Lumps, No Mole Changes, No Mottling, No Nail Changes, No Pruritus, No Rash, No Skin Lesion Changes, No Other, No Acne Physical Exam General: Alert, Oriented X3, Cooperative, moderate distress HEENT: Atraumatic, PERRLA, EOMI, Mucous membr. moist/pink Lungs: Clear to auscultation, Normal air movement Heart: S1S2, RRR, no thrills, no rubs, no gallops, no murmurs Abdomen: Normal bowel sounds, No hepatosplenomegaly, No masses, Other (suprapubic and LLQ tenderness) PELVIC: Tenderness Extremities: No clubbing, No cyanosis, No edema, Normal pulses, No tenderness/swelling Skin: No rashes, No breakdown, No significant lesion Neuro: Normal gait, Normal speech, Strength at 5/5 X4 ext, Normal tone, Sensation intact, Cranial nerves 3-12 NL, Reflexes 2+ Psych/Mental Status: Mental status NL, Mood NL Vitals Vitals Vital Signs Date Time Temp Pulse Resp B/P (MAP) Pulse Ox O2 Delivery O2 Flow Rate FiO2 10/06/19 07:02 116 20 97/54 (68) 97 Room Air 10/06/19 03:59 98.6 98.6 Labs Labs Laboratory Tests Test 10/06/19 03:40 10/06/19 03:47 10/06/19 04:30 Urine Collection Type Unknown Urine Color Yellow Urine Clarity Clear Urine pH 6.0 (<5.0-8.0) Urine Specific [place] 1.020 (1.000-1.030) Urine Protein Negative mg/dL (NEG-TRACE) Urine Glucose (UA) Negative mg/dL (NEG) Urine Ketones (Stick) Negative mg/dL (NEG) Urine Blood Small (NEG) Urine Nitrite Negative (NEG) Urine Bilirubin Negative (NEG) Urine Urobilinogen Dipstick 1.0 mg/dL (0.2 mg/dL) Urine Leukocyte Esterase Large (NEG) Urine RBC 6-10 /HPF (0-2) Urine WBC Tntc /HPF (0-4) Urine Squamous Epithelial Cells Mod /LPF Urine Amorphous Sediment Present /HPF Urine Bacteria Many /HPF (0-FEW) Urine Mucus Mod /LPF Urine Trichomonas Present Bedside Urine HCG, Qualitative Hcg negative (Negative) White Blood Count 14.1 x10^3/uL (4.0-11.0) Red Blood Count 4.07 x10^6/uL (3.50-5.40) Hemoglobin 12.0 g/dL (12.0-15.5) Hematocrit 36.1 % (36.0-47.0) Mean Corpuscular Volume 89 fL (79-100) Mean Corpuscular Hemoglobin 30 pg (25-35) Mean Corpuscular Hemoglobin Concent 33 g/dL (31-37) Red Cell Distribution Width 13.4 % (11.5-14.5) Platelet Count 241 x10^3/uL (140-400) Neutrophils (%) (Auto) 84 % (31-73) Lymphocytes (%) (Auto) 9 % (24-48) Monocytes (%) (Auto) 6 % (0-9) Eosinophils (%) (Auto) 0 % (0-3) Basophils (%) (Auto) 0 % (0-3) Neutrophils # (Auto) 11.9 x10^3/uL (1.8-7.7) Lymphocytes # (Auto) 1.3 x10^3/uL (1.0-4.8) Monocytes # (Auto) 0.8 x10^3/uL (0.0-1.1) Eosinophils # (Auto) 0.0 x10^3/uL (0.0-0.7) Basophils # (Auto) 0.0 x10^3/uL (0.0-0.2) Sodium Level 138 mmol/L (136-145) Potassium Level 3.9 mmol/L (3.5-5.1) Chloride Level 107 mmol/L (98-107) Carbon Dioxide Level 24 mmol/L (21-32) Anion Gap 7 (6-14) Blood Urea Nitrogen 10 mg/dL (7-20) Creatinine 0.7 mg/dL (0.6-1.0) Estimated GFR (Cockcroft-Gault) 102.0 BUN/Creatinine Ratio 14 (6-20) Glucose Level 116 mg/dL (70-99) Lactic Acid Level 0.9 mmol/L (0.4-2.0) Calcium Level 8.4 mg/dL (8.5-10.1) Total Bilirubin 0.4 mg/dL (0.2-1.0) Aspartate Amino Transf (AST/SGOT) 14 U/L (15-37) Alanine Aminotransferase (ALT/SGPT) 16 U/L (14-59) Alkaline Phosphatase 60 U/L (46-116) Total Protein 7.2 g/dL (6.4-8.2) Albumin 3.3 g/dL (3.4-5.0) Albumin/Globulin Ratio 0.8 (1.0-1.7) Laboratory Tests Test 10/06/19 03:40 10/06/19 03:47 10/06/19 04:30 Urine Collection Type Unknown Urine Color Yellow Urine Clarity Clear Urine pH 6.0 (<5.0-8.0) Urine Specific [place] 1.020 (1.000-1.030) Urine Protein Negative mg/dL (NEG-TRACE) Urine Glucose (UA) Negative mg/dL (NEG) Urine Ketones (Stick) Negative mg/dL (NEG) Urine Blood Small (NEG) Urine Nitrite Negative (NEG) Urine Bilirubin Negative (NEG) Urine Urobilinogen Dipstick 1.0 mg/dL (0.2 mg/dL) Urine Leukocyte Esterase Large (NEG) Urine RBC 6-10 /HPF (0-2) Urine WBC Tntc /HPF (0-4) Urine Squamous Epithelial Cells Mod /LPF Urine Amorphous Sediment Present /HPF Urine Bacteria Many /HPF (0-FEW) Urine Mucus Mod /LPF Urine Trichomonas Present Bedside Urine HCG, Qualitative Hcg negative (Negative) White Blood Count 14.1 x10^3/uL (4.0-11.0) Red Blood Count 4.07 x10^6/uL (3.50-5.40) Hemoglobin 12.0 g/dL (12.0-15.5) Hematocrit 36.1 % (36.0-47.0) Mean Corpuscular Volume 89 fL (79-100) Mean Corpuscular Hemoglobin 30 pg (25-35) Mean Corpuscular Hemoglobin Concent 33 g/dL (31-37) Red Cell Distribution Width 13.4 % (11.5-14.5) Platelet Count 241 x10^3/uL (140-400) Neutrophils (%) (Auto) 84 % (31-73) Lymphocytes (%) (Auto) 9 % (24-48) Monocytes (%) (Auto) 6 % (0-9) Eosinophils (%) (Auto) 0 % (0-3) Basophils (%) (Auto) 0 % (0-3) Neutrophils # (Auto) 11.9 x10^3/uL (1.8-7.7) Lymphocytes # (Auto) 1.3 x10^3/uL (1.0-4.8) Monocytes # (Auto) 0.8 x10^3/uL (0.0-1.1) Eosinophils # (Auto) 0.0 x10^3/uL (0.0-0.7) Basophils # (Auto) 0.0 x10^3/uL (0.0-0.2) Sodium Level 138 mmol/L (136-145) Potassium Level 3.9 mmol/L (3.5-5.1) Chloride Level 107 mmol/L (98-107) Carbon Dioxide Level 24 mmol/L (21-32) Anion Gap 7 (6-14) Blood Urea Nitrogen 10 mg/dL (7-20) Creatinine 0.7 mg/dL (0.6-1.0) Estimated GFR (Cockcroft-Gault) 102.0 BUN/Creatinine Ratio 14 (6-20) Glucose Level 116 mg/dL (70-99) Lactic Acid Level 0.9 mmol/L (0.4-2.0) Calcium Level 8.4 mg/dL (8.5-10.1) Total Bilirubin 0.4 mg/dL (0.2-1.0) Aspartate Amino Transf (AST/SGOT) 14 U/L (15-37) Alanine Aminotransferase (ALT/SGPT) 16 U/L (14-59) Alkaline Phosphatase 60 U/L (46-116) Total Protein 7.2 g/dL (6.4-8.2) Albumin 3.3 g/dL (3.4-5.0) Albumin/Globulin Ratio 0.8 (1.0-1.7) Images Images TVUS: Uterus: 86 x 56 x 37 mm. Endometrial Stripe: 5 mm. Right Ovary: 30 x 19 x 19 mm. Left Ovary: 31 x 25 x 21 mm. Vascular flow identified to bilateral ovaries. Hypoechoic lesion at the cervix which can be seen with nabothian cyst. There is a small amount of suspected complex fluid IMPRESSION: * Vascular flow seen to the bilateral ovaries. * Hypoechoic lesions at cervix which are commonly from nabothian cysts. * Suspect a small amount of complex fluid. CT Abdomen/pelvis: Dependent atelectasis at lung bases. Abdominal aorta is not aneurysmal. Small fat-containing umbilical hernia. Mild low density at portal triads. Small amount of motion limits evaluation of the gallbladder. No peripancreatic fluid collection. Spleen unremarkable. No hydronephrosis. Urinary bladder is partially distended. No dilated loops of bowel to suggest obstruction. The colon is not distended around the hepatic flexure with some mild prominence of the wall the area. No periappendiceal inflammatory changes. Fullness of the right adnexa. IMPRESSION: * No evidence of bowel obstruction or appendicitis. * The colon is not very distended near hepatic flexure with prominence the wall. The most likely cause is lack of distention but would correlate with symptoms to ensure that there is not a pathologic process such as colitis contributing. VTE Prophylaxis Ordered VTE Prophylaxis Devices: No VTE Pharmacological Prophylaxi: No Assessment/Plan Assessment/Plan A/P: Nausea, vomiting, and diarrhea - likely 2/2 sepsis +/- colitis/gastroenteritis, IV antiemetics Cervical motion tendnerness - with trichomonas positive, will treat this and more common causes of pelvic inflammatory disease as well. Hopefully can transition to PO in next 24-48 hours] Intractable abdominal pain - likely from PID vs colitis, treating both, more lik [place] PID is the cause Sepsis - Given IVF, empiric antibiotics. Will f/u blood and urine cultures as well as PCR for GC/chlamydia, treat empirically rocephin, doxy, flagyl Anxiety with depression - will cont home meds Asthma - not active today, counseled on smoking cessation Epilepsy - on renea, does not recall her neurologist Smoker - nicotine patch offered FEN - NPO, will ADAT PPX - SCDs FULL CODE Dispo - inpatient Justifications for Admission Other Justification MING GOETZ MD Oct 06, 2019 07:54
[2019-10-06 11:15] VITALS: BP 93/51
[2019-10-06] MEDS: traMADol 50 MG TABLET PO PRN ×2 (11:52→17:43)
[2019-10-06] MEDS ORDERED: NICOTINE 21MG PATCH. TD PRN (12:15)
[2019-10-06] MEDS: levETIRAcetam 500 MG TABLET PO SCH ×2 (12:23→20:32)
--- NOTE | 2019-10-06 13:24 | NUR ---
DR Zaragoza is aware of GI symptoms. Orders to collect stool for Cdiff if x1 more loose stool Addendum: 10/06/19 at 1326 by TIM GRAY RN Amended: Links added.
[2019-10-06] MEDS: DOXYCYCLINE HYCLATE 100 MG in IV DEXTROSE 5% 100ML 100 ML IV SCH ×2 (13:56→20:33)
[2019-10-06] MEDS: ACETAMINOPHEN 325 MG TABLET. PO PRN ×2 (15:15→21:28)
[2019-10-06 15:34] VITALS: BP 92/52
[2019-10-06 20:20] VITALS: BP 83/45
[2019-10-06] MEDS ORDERED: POTASSIUM CL 20MEQ D5-0.45NACL 1,000 ML IV SCH (22:00)
[2019-10-07 03:05] VITALS: BP 100/43
[2019-10-07] MEDS: ACETAMINOPHEN 325 MG TABLET. PO PRN (03:26)
[2019-10-07 06:38] LABS: BASO % 0 % (0-3); EOS # 0.1 x10^3/uL (0.0-0.7); EOS % 2 % (0-3); HEMATOCRIT 32.5 % (36.0-47.0); HEMOGLOBIN 11.1 g/dL (12.0-15.5); LYMPH # 1.5 x10^3/uL (1.0-4.8); LYMPH % 25 % (24-48); MEAN CORPUSCULAR HEMOGLOBIN 30 pg (25-35); MEAN CORPUSCULAR HGB CONC 34 g/dL (31-37); MEAN CORPUSCULAR VOLUME 89 fL (79-100); MONO # 0.5 x10^3/uL (0.0-1.1); MONO % 9 % (0-9); NEUT # 3.9 x10^3/uL (1.8-7.7); NEUT % 65 % (31-73); PLATELET COUNT 180 x10^3/uL (140-400); RED BLOOD COUNT 3.66 x10^6/uL (3.50-5.40); RED CELL DISTRIBUTION WIDTH 13.7 % (11.5-14.5); WHITE BLOOD COUNT 6.1 x10^3/uL (4.0-11.0)
[2019-10-07 07:06] LABS: ALBUMIN 2.6 g/dL (3.4-5.0); ALBUMIN/GLOBULIN RATIO 0.9 (1.0-1.7); CALCIUM 7.6 mg/dL (8.5-10.1); CREATININE 0.6 mg/dL (0.6-1.0); GFR 121.8; POTASSIUM 3.7 mmol/L (3.5-5.1); TOTAL BILIRUBIN 0.3 mg/dL (0.2-1.0); TOTAL PROTEIN 5.4 g/dL (6.4-8.2)
--- NOTE | 2019-10-07 08:34 | PDOC ---
PROGRESS NOTES Date of Service: DATE: 10/07/19 TIME: 08:25 Chief Complaint Chief Complaint Abdominal pain History of Present Illness History of Present Illness Patient reports improvement in abdominal pain, although is still present. Her nausea, vomiting, diarrhea have resolved. She is tolerating her diet. Vitals Vitals Vital Signs Date Time Temp Pulse Resp B/P (MAP) Pulse Ox O2 Delivery O2 Flow Rate FiO2 10/07/19 03:05 97.6 83 18 100/43 (62) 94 Room Air 97.6 Physical Exam General: Alert, Oriented X3, Cooperative, moderate distress Heart: Regular rate Lungs: Clear Abdomen: Normal bowel sounds, No hepatosplenomegaly, No masses, Other (suprapubic and LLQ tenderness) Extremities: No clubbing, No cyanosis, No edema, Normal pulses, No tenderness/swelling Skin: No rashes, No breakdown, No significant lesion Labs LABS Laboratory Tests Test 10/07/19 05:20 10/07/19 05:26 Sodium Level 141 mmol/L (136-145) Potassium Level 3.7 mmol/L (3.5-5.1) Chloride Level 108 mmol/L (98-107) Carbon Dioxide Level 26 mmol/L (21-32) Anion Gap 7 (6-14) Blood Urea Nitrogen 7 mg/dL (7-20) Creatinine 0.6 mg/dL (0.6-1.0) Estimated GFR (Cockcroft-Gault) 121.8 BUN/Creatinine Ratio 12 (6-20) Glucose Level 85 mg/dL (70-99) Calcium Level 7.6 mg/dL (8.5-10.1) Total Bilirubin 0.3 mg/dL (0.2-1.0) Aspartate Amino Transf (AST/SGOT) 13 U/L (15-37) Alanine Aminotransferase (ALT/SGPT) 21 U/L (14-59) Alkaline Phosphatase 47 U/L (46-116) Total Protein 5.4 g/dL (6.4-8.2) Albumin 2.6 g/dL (3.4-5.0) Albumin/Globulin Ratio 0.9 (1.0-1.7) White Blood Count 6.1 x10^3/uL (4.0-11.0) Red Blood Count 3.66 x10^6/uL (3.50-5.40) Hemoglobin 11.1 g/dL (12.0-15.5) Hematocrit 32.5 % (36.0-47.0) Mean Corpuscular Volume 89 fL (79-100) Mean Corpuscular Hemoglobin 30 pg (25-35) Mean Corpuscular Hemoglobin Concent 34 g/dL (31-37) Red Cell Distribution Width 13.7 % (11.5-14.5) Platelet Count 180 x10^3/uL (140-400) Neutrophils (%) (Auto) 65 % (31-73) Lymphocytes (%) (Auto) 25 % (24-48) Monocytes (%) (Auto) 9 % (0-9) Eosinophils (%) (Auto) 2 % (0-3) Basophils (%) (Auto) 0 % (0-3) Neutrophils # (Auto) 3.9 x10^3/uL (1.8-7.7) Lymphocytes # (Auto) 1.5 x10^3/uL (1.0-4.8) Monocytes # (Auto) 0.5 x10^3/uL (0.0-1.1) Eosinophils # (Auto) 0.1 x10^3/uL (0.0-0.7) Basophils # (Auto) 0.0 x10^3/uL (0.0-0.2) Review of Systems Review of Systems Abdominal pain. Denies nausea, denies vomiting, denies diarrhea, denies fever. Assessment and Plan Assessmemt and Plan Problems Medical Problems: (1) Abdominal pain Status: Acute (2) Hypotension Status: Acute (3) Trichimoniasis Status: Acute (4) UTI (urinary tract infection) Status: Acute Plan: Continue antibiotics for 24 hours after resolution of the patient's symptoms. May likely discharge tomorrow to continue oral antibiotics outpatient. Calcium replacement. Comment Review of Relevant I have reviewed the following items elmer (where applicable) has been applied. Labs Laboratory Tests Test 10/06/19 03:40 10/06/19 03:47 10/06/19 04:30 10/07/19 05:20 Urine Collection Type Unknown Urine Color Yellow Urine Clarity Clear Urine pH 6.0 (<5.0-8.0) Urine Specific [place] 1.020 (1.000-1.030) Urine Protein Negative mg/dL (NEG-TRACE) Urine Glucose (UA) Negative mg/dL (NEG) Urine Ketones (Stick) Negative mg/dL (NEG) Urine Blood Small (NEG) Urine Nitrite Negative (NEG) Urine Bilirubin Negative (NEG) Urine Urobilinogen Dipstick 1.0 mg/dL (0.2 mg/dL) Urine Leukocyte Esterase Large (NEG) Urine RBC 6-10 /HPF (0-2) Urine WBC Tntc /HPF (0-4) Urine Squamous Epithelial Cells Mod /LPF Urine Amorphous Sediment Present /HPF Urine Bacteria Many /HPF (0-FEW) Urine Mucus Mod /LPF Urine Trichomonas Present Bedside Urine HCG, Qualitative Hcg negative (Negative) White Blood Count 14.1 x10^3/uL (4.0-11.0) Red Blood Count 4.07 x10^6/uL (3.50-5.40) Hemoglobin 12.0 g/dL (12.0-15.5) Hematocrit 36.1 % (36.0-47.0) Mean Corpuscular Volume 89 fL (79-100) Mean Corpuscular Hemoglobin 30 pg (25-35) Mean Corpuscular Hemoglobin Concent 33 g/dL (31-37) Red Cell Distribution Width 13.4 % (11.5-14.5) Platelet Count 241 x10^3/uL (140-400) Neutrophils (%) (Auto) 84 % (31-73) Lymphocytes (%) (Auto) 9 % (24-48) Monocytes (%) (Auto) 6 % (0-9) Eosinophils (%) (Auto) 0 % (0-3) Basophils (%) (Auto) 0 % (0-3) Neutrophils # (Auto) 11.9 x10^3/uL (1.8-7.7) Lymphocytes # (Auto) 1.3 x10^3/uL (1.0-4.8) Monocytes # (Auto) 0.8 x10^3/uL (0.0-1.1) Eosinophils # (Auto) 0.0 x10^3/uL (0.0-0.7) Basophils # (Auto) 0.0 x10^3/uL (0.0-0.2) Sodium Level 138 mmol/L (136-145) 141 mmol/L (136-145) Potassium Level 3.9 mmol/L (3.5-5.1) 3.7 mmol/L (3.5-5.1) Chloride Level 107 mmol/L (98-107) 108 mmol/L (98-107) Carbon Dioxide Level 24 mmol/L (21-32) 26 mmol/L (21-32) Anion Gap 7 (6-14) 7 (6-14) Blood Urea Nitrogen 10 mg/dL (7-20) 7 mg/dL (7-20) Creatinine 0.7 mg/dL (0.6-1.0) 0.6 mg/dL (0.6-1.0) Estimated GFR (Cockcroft-Gault) 102.0 121.8 BUN/Creatinine Ratio 14 (6-20) 12 (6-20) Glucose Level 116 mg/dL (70-99) 85 mg/dL (70-99) Lactic Acid Level 0.9 mmol/L (0.4-2.0) Calcium Level 8.4 mg/dL (8.5-10.1) 7.6 mg/dL (8.5-10.1) Total Bilirubin 0.4 mg/dL (0.2-1.0) 0.3 mg/dL (0.2-1.0) Aspartate Amino Transf (AST/SGOT) 14 U/L (15-37) 13 U/L (15-37) Alanine Aminotransferase (ALT/SGPT) 16 U/L (14-59) 21 U/L (14-59) Alkaline Phosphatase 60 U/L (46-116) 47 U/L (46-116) Total Protein 7.2 g/dL (6.4-8.2) 5.4 g/dL (6.4-8.2) Albumin 3.3 g/dL (3.4-5.0) 2.6 g/dL (3.4-5.0) Albumin/Globulin Ratio 0.8 (1.0-1.7) 0.9 (1.0-1.7) Test 10/07/19 05:26 White Blood Count 6.1 x10^3/uL (4.0-11.0) Red Blood Count 3.66 x10^6/uL (3.50-5.40) Hemoglobin 11.1 g/dL (12.0-15.5) Hematocrit 32.5 % (36.0-47.0) Mean Corpuscular Volume 89 fL (79-100) Mean Corpuscular Hemoglobin 30 pg (25-35) Mean Corpuscular Hemoglobin Concent 34 g/dL (31-37) Red Cell Distribution Width 13.7 % (11.5-14.5) Platelet Count 180 x10^3/uL (140-400) Neutrophils (%) (Auto) 65 % (31-73) Lymphocytes (%) (Auto) 25 % (24-48) Monocytes (%) (Auto) 9 % (0-9) Eosinophils (%) (Auto) 2 % (0-3) Basophils (%) (Auto) 0 % (0-3) Neutrophils # (Auto) 3.9 x10^3/uL (1.8-7.7) Lymphocytes # (Auto) 1.5 x10^3/uL (1.0-4.8) Monocytes # (Auto) 0.5 x10^3/uL (0.0-1.1) Eosinophils # (Auto) 0.1 x10^3/uL (0.0-0.7) Basophils # (Auto) 0.0 x10^3/uL (0.0-0.2) Laboratory Tests Test 10/07/19 05:20 10/07/19 05:26 Sodium Level 141 mmol/L (136-145) Potassium Level 3.7 mmol/L (3.5-5.1) Chloride Level 108 mmol/L (98-107) Carbon Dioxide Level 26 mmol/L (21-32) Anion Gap 7 (6-14) Blood Urea Nitrogen 7 mg/dL (7-20) Creatinine 0.6 mg/dL (0.6-1.0) Estimated GFR (Cockcroft-Gault) 121.8 BUN/Creatinine Ratio 12 (6-20) Glucose Level 85 mg/dL (70-99) Calcium Level 7.6 mg/dL (8.5-10.1) Total Bilirubin 0.3 mg/dL (0.2-1.0) Aspartate Amino Transf (AST/SGOT) 13 U/L (15-37) Alanine Aminotransferase (ALT/SGPT) 21 U/L (14-59) Alkaline Phosphatase 47 U/L (46-116) Total Protein 5.4 g/dL (6.4-8.2) Albumin 2.6 g/dL (3.4-5.0) Albumin/Globulin Ratio 0.9 (1.0-1.7) White Blood Count 6.1 x10^3/uL (4.0-11.0) Red Blood Count 3.66 x10^6/uL (3.50-5.40) Hemoglobin 11.1 g/dL (12.0-15.5) Hematocrit 32.5 % (36.0-47.0) Mean Corpuscular Volume 89 fL (79-100) Mean Corpuscular Hemoglobin 30 pg (25-35) Mean Corpuscular Hemoglobin Concent 34 g/dL (31-37) Red Cell Distribution Width 13.7 % (11.5-14.5) Platelet Count 180 x10^3/uL (140-400) Neutrophils (%) (Auto) 65 % (31-73) Lymphocytes (%) (Auto) 25 % (24-48) Monocytes (%) (Auto) 9 % (0-9) Eosinophils (%) (Auto) 2 % (0-3) Basophils (%) (Auto) 0 % (0-3) Neutrophils # (Auto) 3.9 x10^3/uL (1.8-7.7) Lymphocytes # (Auto) 1.5 x10^3/uL (1.0-4.8) Monocytes # (Auto) 0.5 x10^3/uL (0.0-1.1) Eosinophils # (Auto) 0.1 x10^3/uL (0.0-0.7) Basophils # (Auto) 0.0 x10^3/uL (0.0-0.2) Microbiology 10/06/19 Blood Culture - Preliminary, Resulted NO GROWTH AFTER 1 DAY Medications Current Medications Sodium Chloride 2,040 ml @ 2,040 mls/hr Q1H IV Last administered on 10/06/19at 04:36; Start 10/06/19 at 04:25; Stop 10/06/19 at 04:37; Status DC Sodium Chloride 1,000 ml @ 1,000 mls/hr Q1H IV Last administered on 10/06/19at 05:22; Start 10/06/19 at 04:37; Stop 10/06/19 at 06:13; Status DC Cefoxitin Sodium (Mefoxin) 2 gm 1X ONCE IVP Last administered on 10/06/19at 05:00; Start 10/06/19 at 05:00; Stop 10/06/19 at 05:01; Status DC Doxycycline Hyclate 100 mg/ Dextrose 100 ml @ 50 mls/hr 1X ONCE IV Last administered on 10/06/19at 05:05; Start 10/06/19 at 05:00; Stop 10/06/19 at 06:59; Status DC Hydromorphone HCl (Dilaudid) 1 mg 1X ONCE IVP Last administered on 10/06/19at 04:57; Start 10/06/19 at 05:00; Stop 10/06/19 at 05:01; Status DC Iohexol (Omnipaque 300 Mg/ml) 75 ml 1X ONCE IV Last administered on 10/06/19at 05:00; Start 10/06/19 at 05:00; Stop 10/06/19 at 05:01; Status DC Metronidazole 100 ml @ 100 mls/hr 1X ONCE IV Last administered on 10/06/19at 04:58; Start 10/06/19 at 05:00; Stop 10/06/19 at 05:59; Status DC Info (CONTRAST GIVEN -- Rx MONITORING) 1 each PRN DAILY PRN MC SEE COMMENTS; Start 10/06/19 at 05:00; Stop 10/08/19 at 04:59 Norepinephrine Bitartrate 8 mg/ Dextrose 258 ml @ 13.158 mls/ hr CONT PRN IV PER PROTOCOL Last administered on 10/06/19at 05:22; Start 10/06/19 at 05:15; Stop 10/06/19 at 09:38; Status DC Ondansetron HCl (Zofran) 8 mg 1X ONCE IVP Last administered on 10/06/19at 05:43; Start 10/06/19 at 05:45; Stop 10/06/19 at 05:46; Status DC Sodium Chloride 1,000 ml @ 1,000 mls/hr 1X ONCE IV Last administered on 10/06/19at 06:37; Start 10/06/19 at 06:45; Stop 10/06/19 at 07:44; Status DC Fentanyl Citrate (Fentanyl 2ml Vial) 50 mcg 1X ONCE IV Last administered on 10/06/19at 07:30; Start 10/06/19 at 07:30; Stop 10/06/19 at 07:31; Status DC Ondansetron HCl (Zofran) 4 mg PRN Q8HRS PRN IV NAUSEA/VOMITING; Start 10/06/19 at 07:45; Stop 10/06/19 at 10:47; Status DC Fentanyl Citrate (Fentanyl 2ml Vial) 50 mcg Q2HR PRN IV PAIN Last administered on 10/06/19at 09:17; Start 10/06/19 at 07:45; Stop 10/07/19 at 07:44; Status DC Hydromorphone HCl (Dilaudid) 0.5 mg 1X ONCE IVP Last administered on 10/06/19at 10:03; Start 10/06/19 at 09:45; Stop 10/06/19 at 09:46; Status DC Ondansetron HCl (Zofran) 4 mg PRN Q4HRS PRN IV NAUSEA/VOMITING; Start 10/06/19 at 10:45 Metronidazole 100 ml @ 100 mls/hr Q8HRS IV Last administered on 10/07/19at 05 :25; Start 10/06/19 at 11:00 Doxycycline Hyclate 100 mg/ Dextrose 100 ml @ 50 mls/hr Q12HR IV Last administered on 10/06/19at 20:33; Start 10/06/19 at 11:00 Acetaminophen (Tylenol) 650 mg PRN Q6HRS PRN PO MILD PAIN / TEMP > 100.3'F Last administered on 10/07/19at 03:26; Start 10/06/19 at 10:45 Levetiracetam (Keppra) 500 mg BID PO Last administered on 10/06/19at 20:32; Start 10/06/19 at 11:00 Sumatriptan Succinate (Imitrex) 50 mg 1X PRN PRN PO MIGRAINE HEADACHE; Start 10/06/19 at 11:00 Tramadol HCl (Ultram) 50 mg PRN Q6HRS PRN PO MILD TO MODERATE PAIN Last administered on 10/06/19at 17:43; Start 10/06/19 at 11:00 Nicotine (Nicoderm Cq 21mg) 1 patch PRN DAILY PRN TD SMOKING CESSATION; Start 10/06/19 at 12:15 Potassium Chloride/Dextrose/ Sod Cl 1,000 ml @ 75 mls/hr [id number] IV Last administered on 10/06/19at 22:21; Start 10/06/19 at 22:00; Stop 10/07/19 at 11:19 Ceftriaxone Sodium (Rocephin) 1 gm Q24H IVP ; Start 10/07/19 at 09:00 Active Scripts Active Cyclobenzaprine Hcl 10 Mg Tablet 1 Tab PO TID Imitrex (Sumatriptan Succinate) 50 Mg Tablet 50 Mg PO ONCE PRN MDD 200 3 Days may repeat every 2 hours as needed for pain up to a maximum of 4 tablets in a 24 hour period Keppra (Levetiracetam) 500 Mg Tablet 500 Mg PO BID Reported Levetiracetam 500 Mg Tablet 500 Mg PO BID Vitals/I & O Vital Sign - Last 24 Hours 10/06/19 10/06/19 10/06/19 10/06/19 08:30 09:00 09:30 10:30 Pulse 105 105 105 99 Resp 20 20 20 18 B/P (MAP) 100/60 (73) 98/62 (74) 101/62 (75) 104/59 (74) Pulse Ox 98 98 98 98 O2 Delivery Room Air Room Air Room Air Room Air 10/06/19 10/06/19 10/06/19 10/06/19 11:15 11:52 13:00 15:34 Temp 98.9 98.9 98.9 98.9 Pulse 110 102 Resp 18 18 20 18 B/P (MAP) 93/51 (65) 92/52 (65) Pulse Ox 98 100 O2 Delivery Room Air Room Air Room Air Room Air 10/06/19 10/06/19 10/06/19 10/06/19 17:43 19:00 20:20 20:20 Temp 97.7 97.7 Pulse 84 Resp 16 18 B/P (MAP) 83/45 (58) Pulse Ox 98 O2 Delivery Room Air Room Air Room Air Room Air 10/07/19 03:05 Temp 97.6 97.6 Pulse 83 Resp 18 B/P (MAP) 100/43 (62) Pulse Ox 94 O2 Delivery Room Air Intake and Output 10/06/19 10/06/19 10/07/19 15:00 23:00 07:00 Intake Total 500 ml 750 ml Output Total 150 ml 325 ml 600 ml Balance 350 ml -325 ml 150 ml Justicifation of Admission Dx: Justifications for Admission: Justification of Admission Dx: Yes BUSHRA HALL MD Oct 07, 2019 08:33
[2019-10-07] MEDS: DOXYCYCLINE HYCLATE 100 MG in IV DEXTROSE 5% 100ML 100 ML IV SCH ×2 (09:00→20:56)
[2019-10-07] MEDS: CALCIUM CARBONATE 500 MG TABLET PO SCH ×3 (09:00→19:09)
[2019-10-07] MEDS: cefTRIAXone IV Push 1 GM VIAL. IVP SCH (09:00)
[2019-10-07] MEDS: levETIRAcetam 500 MG TABLET PO SCH ×2 (09:00→20:59)
[2019-10-07 10:20] VITALS: BP 99/52
[2019-10-07] MEDS: LACTOBACILLUS RHAMNOSUS GG 1 CAPSULE. PO SCH ×2 (11:00→20:59)
[2019-10-07 15:20] VITALS: BP 98/51
[2019-10-07 19:20] VITALS: BP 102/69
[2019-10-08 04:15] VITALS: BP 108/60
[2019-10-08] MEDS: traMADol 50 MG TABLET PO PRN (04:32)
[2019-10-08 07:50] VITALS: BP 105/61
[2019-10-08 08:31] LABS: BASO % 0 % (0-3); EOS # 0.3 x10^3/uL (0.0-0.7); EOS % 6 % (0-3); HEMATOCRIT 35.8 % (36.0-47.0); HEMOGLOBIN 11.9 g/dL (12.0-15.5); LYMPH # 1.4 x10^3/uL (1.0-4.8); LYMPH % 30 % (24-48); MEAN CORPUSCULAR HEMOGLOBIN 30 pg (25-35); MEAN CORPUSCULAR HGB CONC 33 g/dL (31-37); MEAN CORPUSCULAR VOLUME 89 fL (79-100); MONO # 0.4 x10^3/uL (0.0-1.1); MONO % 9 % (0-9); NEUT # 2.5 x10^3/uL (1.8-7.7); NEUT % 55 % (31-73); PLATELET COUNT 220 x10^3/uL (140-400); RED BLOOD COUNT 4.01 x10^6/uL (3.50-5.40); RED CELL DISTRIBUTION WIDTH 13.6 % (11.5-14.5); WHITE BLOOD COUNT 4.6 x10^3/uL (4.0-11.0)
[2019-10-08] MEDS: LACTOBACILLUS RHAMNOSUS GG 1 CAPSULE. PO SCH (08:42)
[2019-10-08] MEDS: CALCIUM CARBONATE 500 MG TABLET PO SCH (08:42)
[2019-10-08] MEDS: levETIRAcetam 500 MG TABLET PO SCH (08:42)
[2019-10-08] MEDS: cefTRIAXone IV Push 1 GM VIAL. IVP SCH (08:43)
[2019-10-08 08:45] LABS: CALCIUM 8.1 mg/dL (8.5-10.1); CREATININE 0.7 mg/dL (0.6-1.0); POTASSIUM 4.5 mmol/L (3.5-5.1)
[2019-10-08] MEDS: DOXYCYCLINE HYCLATE 100 MG in IV DEXTROSE 5% 100ML 100 ML IV SCH (08:46)
--- NOTE | 2019-10-08 09:57 | PDOC ---
PROGRESS NOTES Date of Service: DATE: 10/08/19 TIME: 09:55 Chief Complaint Chief Complaint Abdominal pain History of Present Illness History of Present Illness Patient states abdominal pain continues to improve. She is tolerating her diet well. Denies nausea, vomiting, diarrhea. Discussed continuing antibiotics outpatient at home, with close PCP follow-up Vitals Vitals Vital Signs Date Time Temp Pulse Resp B/P (MAP) Pulse Ox O2 Delivery O2 Flow Rate FiO2 10/08/19 07:50 97.7 73 18 105/61 (76) 97 Room Air 97.7 Physical Exam General: Alert, Oriented X3, Cooperative, moderate distress Heart: Regular rate Lungs: Clear Abdomen: Normal bowel sounds, No hepatosplenomegaly, No masses, Other (Mild suprapubic tenderness) Extremities: No clubbing, No cyanosis, No edema, Normal pulses, No tenderness/swelling Skin: No rashes, No breakdown, No significant lesion Labs LABS Laboratory Tests Test 10/08/19 07:51 White Blood Count 4.6 x10^3/uL (4.0-11.0) Red Blood Count 4.01 x10^6/uL (3.50-5.40) Hemoglobin 11.9 g/dL (12.0-15.5) Hematocrit 35.8 % (36.0-47.0) Mean Corpuscular Volume 89 fL (79-100) Mean Corpuscular Hemoglobin 30 pg (25-35) Mean Corpuscular Hemoglobin Concent 33 g/dL (31-37) Red Cell Distribution Width 13.6 % (11.5-14.5) Platelet Count 220 x10^3/uL (140-400) Neutrophils (%) (Auto) 55 % (31-73) Lymphocytes (%) (Auto) 30 % (24-48) Monocytes (%) (Auto) 9 % (0-9) Eosinophils (%) (Auto) 6 % (0-3) Basophils (%) (Auto) 0 % (0-3) Neutrophils # (Auto) 2.5 x10^3/uL (1.8-7.7) Lymphocytes # (Auto) 1.4 x10^3/uL (1.0-4.8) Monocytes # (Auto) 0.4 x10^3/uL (0.0-1.1) Eosinophils # (Auto) 0.3 x10^3/uL (0.0-0.7) Basophils # (Auto) 0.0 x10^3/uL (0.0-0.2) Sodium Level 141 mmol/L (136-145) Potassium Level 4.5 mmol/L (3.5-5.1) Chloride Level 108 mmol/L (98-107) Carbon Dioxide Level 27 mmol/L (21-32) Anion Gap 6 (6-14) Blood Urea Nitrogen 7 mg/dL (7-20) Creatinine 0.7 mg/dL (0.6-1.0) Estimated GFR (Cockcroft-Gault) 102.0 Glucose Level 86 mg/dL (70-99) Calcium Level 8.1 mg/dL (8.5-10.1) Review of Systems Review of Systems Denies nausea, denies vomiting, denies diarrhea, denies fever. Assessment and Plan Assessmemt and Plan Problems Medical Problems: (1) Abdominal pain Status: Acute (2) Hypotension Status: Acute (3) Trichimoniasis Status: Acute (4) UTI (urinary tract infection) Status: Acute Comment Review of Relevant I have reviewed the following items elmer (where applicable) has been applied. Labs Laboratory Tests Test 10/07/19 05:20 10/07/19 05:26 10/08/19 07:51 Sodium Level 141 mmol/L (136-145) 141 mmol/L (136-145) Potassium Level 3.7 mmol/L (3.5-5.1) 4.5 mmol/L (3.5-5.1) Chloride Level 108 mmol/L (98-107) 108 mmol/L (98-107) Carbon Dioxide Level 26 mmol/L (21-32) 27 mmol/L (21-32) Anion Gap 7 (6-14) 6 (6-14) Blood Urea Nitrogen 7 mg/dL (7-20) 7 mg/dL (7-20) Creatinine 0.6 mg/dL (0.6-1.0) 0.7 mg/dL (0.6-1.0) Estimated GFR (Cockcroft-Gault) 121.8 102.0 BUN/Creatinine Ratio 12 (6-20) Glucose Level 85 mg/dL (70-99) 86 mg/dL (70-99) Calcium Level 7.6 mg/dL (8.5-10.1) 8.1 mg/dL (8.5-10.1) Total Bilirubin 0.3 mg/dL (0.2-1.0) Aspartate Amino Transf (AST/SGOT) 13 U/L (15-37) Alanine Aminotransferase (ALT/SGPT) 21 U/L (14-59) Alkaline Phosphatase 47 U/L (46-116) Total Protein 5.4 g/dL (6.4-8.2) Albumin 2.6 g/dL (3.4-5.0) Albumin/Globulin Ratio 0.9 (1.0-1.7) White Blood Count 6.1 x10^3/uL (4.0-11.0) 4.6 x10^3/uL (4.0-11.0) Red Blood Count 3.66 x10^6/uL (3.50-5.40) 4.01 x10^6/uL (3.50-5.40) Hemoglobin 11.1 g/dL (12.0-15.5) 11.9 g/dL (12.0-15.5) Hematocrit 32.5 % (36.0-47.0) 35.8 % (36.0-47.0) Mean Corpuscular Volume 89 fL (79-100) 89 fL (79-100) Mean Corpuscular Hemoglobin 30 pg (25-35) 30 pg (25-35) Mean Corpuscular Hemoglobin Concent 34 g/dL (31-37) 33 g/dL (31-37) Red Cell Distribution Width 13.7 % (11.5-14.5) 13.6 % (11.5-14.5) Platelet Count 180 x10^3/uL (140-400) 220 x10^3/uL (140-400) Neutrophils (%) (Auto) 65 % (31-73) 55 % (31-73) Lymphocytes (%) (Auto) 25 % (24-48) 30 % (24-48) Monocytes (%) (Auto) 9 % (0-9) 9 % (0-9) Eosinophils (%) (Auto) 2 % (0-3) 6 % (0-3) Basophils (%) (Auto) 0 % (0-3) 0 % (0-3) Neutrophils # (Auto) 3.9 x10^3/uL (1.8-7.7) 2.5 x10^3/uL (1.8-7.7) Lymphocytes # (Auto) 1.5 x10^3/uL (1.0-4.8) 1.4 x10^3/uL (1.0-4.8) Monocytes # (Auto) 0.5 x10^3/uL (0.0-1.1) 0.4 x10^3/uL (0.0-1.1) Eosinophils # (Auto) 0.1 x10^3/uL (0.0-0.7) 0.3 x10^3/uL (0.0-0.7) Basophils # (Auto) 0.0 x10^3/uL (0.0-0.2) 0.0 x10^3/uL (0.0-0.2) Laboratory Tests Test 10/08/19 07:51 White Blood Count 4.6 x10^3/uL (4.0-11.0) Red Blood Count 4.01 x10^6/uL (3.50-5.40) Hemoglobin 11.9 g/dL (12.0-15.5) Hematocrit 35.8 % (36.0-47.0) Mean Corpuscular Volume 89 fL (79-100) Mean Corpuscular Hemoglobin 30 pg (25-35) Mean Corpuscular Hemoglobin Concent 33 g/dL (31-37) Red Cell Distribution Width 13.6 % (11.5-14.5) Platelet Count 220 x10^3/uL (140-400) Neutrophils (%) (Auto) 55 % (31-73) Lymphocytes (%) (Auto) 30 % (24-48) Monocytes (%) (Auto) 9 % (0-9) Eosinophils (%) (Auto) 6 % (0-3) Basophils (%) (Auto) 0 % (0-3) Neutrophils # (Auto) 2.5 x10^3/uL (1.8-7.7) Lymphocytes # (Auto) 1.4 x10^3/uL (1.0-4.8) Monocytes # (Auto) 0.4 x10^3/uL (0.0-1.1) Eosinophils # (Auto) 0.3 x10^3/uL (0.0-0.7) Basophils # (Auto) 0.0 x10^3/uL (0.0-0.2) Sodium Level 141 mmol/L (136-145) Potassium Level 4.5 mmol/L (3.5-5.1) Chloride Level 108 mmol/L (98-107) Carbon Dioxide Level 27 mmol/L (21-32) Anion Gap 6 (6-14) Blood Urea Nitrogen 7 mg/dL (7-20) Creatinine 0.7 mg/dL (0.6-1.0) Estimated GFR (Cockcroft-Gault) 102.0 Glucose Level 86 mg/dL (70-99) Calcium Level 8.1 mg/dL (8.5-10.1) Microbiology 10/06/19 Blood Culture - Preliminary, Resulted NO GROWTH AFTER 2 DAYS 10/06/19 Urine Culture - Final, Complete Medications Current Medications Sodium Chloride 2,040 ml @ 2,040 mls/hr Q1H IV Last administered on 10/06/19at 04:36; Start 10/06/19 at 04:25; Stop 10/06/19 at 04:37; Status DC Sodium Chloride 1,000 ml @ 1,000 mls/hr Q1H IV Last administered on 10/06/19at 05:22; Start 10/06/19 at 04:37; Stop 10/06/19 at 06:13; Status DC Cefoxitin Sodium (Mefoxin) 2 gm 1X ONCE IVP Last administered on 10/06/19at 05:00; Start 10/06/19 at 05:00; Stop 10/06/19 at 05:01; Status DC Doxycycline Hyclate 100 mg/ Dextrose 100 ml @ 50 mls/hr 1X ONCE IV Last administered on 10/06/19at 05:05; Start 10/06/19 at 05:00; Stop 10/06/19 at 06:59; Status DC Hydromorphone HCl (Dilaudid) 1 mg 1X ONCE IVP Last administered on 10/06/19at 04:57; Start 10/06/19 at 05:00; Stop 10/06/19 at 05:01; Status DC Iohexol (Omnipaque 300 Mg/ml) 75 ml 1X ONCE IV Last administered on 10/06/19at 05:00; Start 10/06/19 at 05:00; Stop 10/06/19 at 05:01; Status DC Metronidazole 100 ml @ 100 mls/hr 1X ONCE IV Last administered on 10/06/19at 04:58; Start 10/06/19 at 05:00; Stop 10/06/19 at 05:59; Status DC Info (CONTRAST GIVEN -- Rx MONITORING) 1 each PRN DAILY PRN MC SEE COMMENTS; Start 10/06/19 at 05:00; Stop 10/08/19 at 04:59; Status DC Norepinephrine Bitartrate 8 mg/ Dextrose 258 ml @ 13.158 mls/ hr CONT PRN IV PER PROTOCOL Last administered on 10/06/19at 05:22; Start 10/06/19 at 05:15; Stop 10/06/19 at 09:38; Status DC Ondansetron HCl (Zofran) 8 mg 1X ONCE IVP Last administered on 10/06/19at 05:43; Start 10/06/19 at 05:45; Stop 10/06/19 at 05:46; Status DC Sodium Chloride 1,000 ml @ 1,000 mls/hr 1X ONCE IV Last administered on 10/06/19at 06:37; Start 10/06/19 at 06:45; Stop 10/06/19 at 07:44; Status DC Fentanyl Citrate (Fentanyl 2ml Vial) 50 mcg 1X ONCE IV Last administered on 10/06/19at 07:30; Start 10/06/19 at 07:30; Stop 10/06/19 at 07:31; Status DC Ondansetron HCl (Zofran) 4 mg PRN Q8HRS PRN IV NAUSEA/VOMITING; Start 10/06/19 at 07:45; Stop 10/06/19 at 10:47; Status DC Fentanyl Citrate (Fentanyl 2ml Vial) 50 mcg Q2HR PRN IV PAIN Last administered on 10/06/19at 09:17; Start 10/06/19 at 07:45; Stop 10/07/19 at 07:44; Status DC Hydromorphone HCl (Dilaudid) 0.5 mg 1X ONCE IVP Last administered on 10/06/19at 10:03; Start 10/06/19 at 09:45; Stop 10/06/19 at 09:46; Status DC Ondansetron HCl (Zofran) 4 mg PRN Q4HRS PRN IV NAUSEA/VOMITING; Start 10/06/19 at 10:45 Metronidazole 100 ml @ 100 mls/hr Q8HRS IV Last administered on 10/08/19at 06:02; Start 10/06/19 at 11:00 Doxycycline Hyclate 100 mg/ Dextrose 100 ml @ 50 mls/hr Q12HR IV Last administered on 10/08/19at 08:46; Start 10/06/19 at 11:00 Acetaminophen (Tylenol) 650 mg PRN Q6HRS PRN PO MILD PAIN / TEMP > 100.3'F Last administered on 10/07/19at 03:26; Start 10/06/19 at 10:45 Levetiracetam (Keppra) 500 mg BID PO Last administered on 10/08/19at 08:42; Start 10/06/19 at 11:00 Sumatriptan Succinate (Imitrex) 50 mg 1X PRN PRN PO MIGRAINE HEADACHE Last administered on 10/07/19at 21:14; Start 10/06/19 at 11:00 Tramadol HCl (Ultram) 50 mg PRN Q6HRS PRN PO MODERATE-SEVERE PAIN Last administered on 10/08/19at 04:32; Start 10/06/19 at 11:00 Nicotine (Nicoderm Cq 21mg) 1 patch PRN DAILY PRN TD SMOKING CESSATION; Start 10/06/19 at 12:15 Potassium Chloride/Dextrose/ Sod Cl 1,000 ml @ 75 mls/hr [id number] IV Last administered on 10/06/19at 22:21; Start 10/06/19 at 22:00; Stop 10/07/19 at 11:19; Status DC Ceftriaxone Sodium (Rocephin) 1 gm Q24H IVP Last administered on 10/08/19at 08:43; Start 10/07/19 at 09:00 Calcium Carbonate/ Glycine (Oscal) 500 mg TIDAFTMEAL PO Last administered on 10/08/19at 08:42; Start 10/07/19 at 09:00 Lactobacillus Rhamnosus (Culturelle) 1 cap BID PO Last administered on 10/08/19at 08:42; Start 10/07/19 at 10:00 Active Scripts Active Cyclobenzaprine Hcl 10 Mg Tablet 1 Tab PO TID Imitrex (Sumatriptan Succinate) 50 Mg Tablet 50 Mg PO ONCE PRN MDD 200 3 Days may repeat every 2 hours as needed for pain up to a maximum of 4 tablets in a 24 hour period Keppra (Levetiracetam) 500 Mg Tablet 500 Mg PO BID Reported Levetiracetam 500 Mg Tablet 500 Mg PO BID Vitals/I & O Vital Sign - Last 24 Hours 10/07/19 10/07/19 10/07/19 10/07/19 10:20 15:20 19:20 19:20 Temp 97.5 98.2 98.8 97.5 98.2 98.8 Pulse 78 76 61 Resp 18 18 20 B/P (MAP) 99/52 (68) 98/51 (67) 102/69 (80) Pulse Ox 98 99 99 O2 Delivery Room Air Room Air Room Air Room Air 10/08/19 10/08/19 10/08/19 04:15 04:32 07:50 Temp 97.7 97.7 97.7 97.7 Pulse 69 73 Resp 20 18 B/P (MAP) 108/60 (76) 105/61 (76) Pulse Ox 99 99 97 O2 Delivery Room Air Room Air Room Air Intake and Output 10/07/19 10/07/19 10/08/19 15:00 23:00 07:00 Intake Total 800 ml 400 ml Output Total 1000 ml 350 ml Balance -200 ml 50 ml Justicifation of Admission Dx: Justifications for Admission: Justification of Admission Dx: Yes BUSHRA HALL MD Oct 08, 2019 09:57
[2019-10-08] MEDS ORDERED: METR-34 PO (10:03)
[2019-10-08] MEDS ORDERED: DOXY100T PO (10:03)
--- NOTE | 2019-10-08 10:07 | PDOC3 ---
Discharge Summary Visit Information Date of Admission: Oct 06, 2019 Date of Discharge: Oct 08, 2019 Final Diagnosis Problems Medical Problems: (1) Abdominal pain Status: Acute (2) Hypotension Status: Acute (3) Trichimoniasis Status: Acute (4) UTI (urinary tract infection) Status: Acute Brief Hospital Course Allergies Allergies Coded Allergies Type Severity Reaction Last Updated Verified naproxen Allergy Intermediate NAUSEA VOMITING 01/25/17 Yes Vital Signs Vital Signs Date Time Temp Pulse Resp B/P (MAP) Pulse Ox O2 Delivery O2 Flow Rate FiO2 10/08/19 07:50 97.7 73 18 105/61 (76) 97 Room Air 97.7 Lab Results Laboratory Tests Test 10/07/19 05:20 10/07/19 05:26 10/08/19 07:51 Sodium Level 141 mmol/L (136-145) 141 mmol/L (136-145) Potassium Level 3.7 mmol/L (3.5-5.1) 4.5 mmol/L (3.5-5.1) Chloride Level 108 mmol/L (98-107) 108 mmol/L (98-107) Carbon Dioxide Level 26 mmol/L (21-32) 27 mmol/L (21-32) Anion Gap 7 (6-14) 6 (6-14) Blood Urea Nitrogen 7 mg/dL (7-20) 7 mg/dL (7-20) Creatinine 0.6 mg/dL (0.6-1.0) 0.7 mg/dL (0.6-1.0) Estimated GFR (Cockcroft-Gault) 121.8 102.0 BUN/Creatinine Ratio 12 (6-20) Glucose Level 85 mg/dL (70-99) 86 mg/dL (70-99) Calcium Level 7.6 mg/dL (8.5-10.1) 8.1 mg/dL (8.5-10.1) Total Bilirubin 0.3 mg/dL (0.2-1.0) Aspartate Amino Transf (AST/SGOT) 13 U/L (15-37) Alanine Aminotransferase (ALT/SGPT) 21 U/L (14-59) Alkaline Phosphatase 47 U/L (46-116) Total Protein 5.4 g/dL (6.4-8.2) Albumin 2.6 g/dL (3.4-5.0) Albumin/Globulin Ratio 0.9 (1.0-1.7) White Blood Count 6.1 x10^3/uL (4.0-11.0) 4.6 x10^3/uL (4.0-11.0) Red Blood Count 3.66 x10^6/uL (3.50-5.40) 4.01 x10^6/uL (3.50-5.40) Hemoglobin 11.1 g/dL (12.0-15.5) 11.9 g/dL (12.0-15.5) Hematocrit 32.5 % (36.0-47.0) 35.8 % (36.0-47.0) Mean Corpuscular Volume 89 fL (79-100) 89 fL (79-100) Mean Corpuscular Hemoglobin 30 pg (25-35) 30 pg (25-35) Mean Corpuscular Hemoglobin Concent 34 g/dL (31-37) 33 g/dL (31-37) Red Cell Distribution Width 13.7 % (11.5-14.5) 13.6 % (11.5-14.5) Platelet Count 180 x10^3/uL (140-400) 220 x10^3/uL (140-400) Neutrophils (%) (Auto) 65 % (31-73) 55 % (31-73) Lymphocytes (%) (Auto) 25 % (24-48) 30 % (24-48) Monocytes (%) (Auto) 9 % (0-9) 9 % (0-9) Eosinophils (%) (Auto) 2 % (0-3) 6 % (0-3) Basophils (%) (Auto) 0 % (0-3) 0 % (0-3) Neutrophils # (Auto) 3.9 x10^3/uL (1.8-7.7) 2.5 x10^3/uL (1.8-7.7) Lymphocytes # (Auto) 1.5 x10^3/uL (1.0-4.8) 1.4 x10^3/uL (1.0-4.8) Monocytes # (Auto) 0.5 x10^3/uL (0.0-1.1) 0.4 x10^3/uL (0.0-1.1) Eosinophils # (Auto) 0.1 x10^3/uL (0.0-0.7) 0.3 x10^3/uL (0.0-0.7) Basophils # (Auto) 0.0 x10^3/uL (0.0-0.2) 0.0 x10^3/uL (0.0-0.2) Laboratory Tests Test 10/08/19 07:51 White Blood Count 4.6 x10^3/uL (4.0-11.0) Red Blood Count 4.01 x10^6/uL (3.50-5.40) Hemoglobin 11.9 g/dL (12.0-15.5) Hematocrit 35.8 % (36.0-47.0) Mean Corpuscular Volume 89 fL (79-100) Mean Corpuscular Hemoglobin 30 pg (25-35) Mean Corpuscular Hemoglobin Concent 33 g/dL (31-37) Red Cell Distribution Width 13.6 % (11.5-14.5) Platelet Count 220 x10^3/uL (140-400) Neutrophils (%) (Auto) 55 % (31-73) Lymphocytes (%) (Auto) 30 % (24-48) Monocytes (%) (Auto) 9 % (0-9) Eosinophils (%) (Auto) 6 % (0-3) Basophils (%) (Auto) 0 % (0-3) Neutrophils # (Auto) 2.5 x10^3/uL (1.8-7.7) Lymphocytes # (Auto) 1.4 x10^3/uL (1.0-4.8) Monocytes # (Auto) 0.4 x10^3/uL (0.0-1.1) Eosinophils # (Auto) 0.3 x10^3/uL (0.0-0.7) Basophils # (Auto) 0.0 x10^3/uL (0.0-0.2) Sodium Level 141 mmol/L (136-145) Potassium Level 4.5 mmol/L (3.5-5.1) Chloride Level 108 mmol/L (98-107) Carbon Dioxide Level 27 mmol/L (21-32) Anion Gap 6 (6-14) Blood Urea Nitrogen 7 mg/dL (7-20) Creatinine 0.7 mg/dL (0.6-1.0) Estimated GFR (Cockcroft-Gault) 102.0 Glucose Level 86 mg/dL (70-99) Calcium Level 8.1 mg/dL (8.5-10.1) Brief Hospital Course Ms. Alanis is a 24 old female who presented with pelvic inflammatory disease and trichomoniasis. She was treated with Rocephin, doxycycline, Flagyl. Her symptoms improved rapidly, without abdominal pain, nausea, or vomiting. She was stable for discharge to finish her course of antibiotics outpatient. Discharge Information Condition at Discharge: Improved Disposition/Orders: D/C to Home Scheduled Cyclobenzaprine Hcl (Cyclobenzaprine Hcl) 10 Mg Tablet, 1 TAB PO TID, #30 Prescribed by: Maria C Joy APRN on 08/28/18 1048 Levetiracetam (Levetiracetam) 500 Mg Tablet, 500 MG PO BID, (Reported) Entered as Reported by: RACHELLE PEÑA on 01/19/14 1626 Last Action: Continued on 10/06/19 1050 by MING GOETZ MD Levetiracetam (Keppra) 500 Mg Tablet, 500 MG PO BID, #60 Ref 3 Prescribed by: DEDRICK BOWMAN on 10/24/16 1445 Scheduled PRN Sumatriptan Succinate (Imitrex) 50 Mg Tablet, 50 MG PO ONCE PRN for MIGRAINE HEADACHE MDD 200 for 3 Days, #10 may repeat every 2 hours as needed for pain up to a maximum of 4 tablets in a 24 hour period Prescribed by: FLY CANNON APRN on 11/28/17 2212 Last Action: Converted on 10/06/19 1050 by MING GOETZ MD Justicifation of Admission Dx: Justifications for Admission: Justification of Admission Dx: Yes BUSHRA HALL MD Oct 08, 2019 10:07
[2019-10-08] MEDS: ACETAMINOPHEN 325 MG TABLET. PO PRN (10:14)
[2019-10-08 10:45] VITALS: BP 96/63
--- NOTE | 2019-10-08 11:03 | NUR ---
Pt. d/c instructions given no questions verbalized at this time. IV d/c'd. VSS. Pt. wheeled down to ED entrance and left per order with family member.
== END 2019-10-08 11:03 | disposition home or self-care (01) | DRG 872 ==
LOC: ER 03:35 → 3 NORTH 07:29
PROVIDERS: ADMIT Internal Medicine; ATTEND Internal Medicine
DX: A41.9 Sepsis, unspecified organism (principal); J98.11 Atelectasis; N30.00 Acute cystitis without hematuria; F17.210 Nicotine dependence, cigarettes, uncomplicated; F41.8 Other specified anxiety disorders; G43.909 Migraine, unspecified, not intractable, without status migrainosus; N88.8 Other specified noninflammatory disorders of cervix uteri; K42.9 Umbilical hernia without obstruction or gangrene; K52.9 Noninfective gastroenteritis and colitis, unspecified; N73.9 Female pelvic inflammatory disease, unspecified; G40.909 Epilepsy, unspecified, not intractable, without status epilepticus; A59.9 Trichomoniasis, unspecified; J45.909 Unspecified asthma, uncomplicated; Z88.6 Allergy status to analgesic agent; Z79.899 Other long term (current) drug therapy; Z82.49 Family history of ischemic heart disease and other diseases of the circulatory system
CPT/HCPCS: 36415; 74177; 76830; 76856; 80048; 80053; 81001; 81025; 83605; 85025; 87040; 87086; 87147; 87491; 87591; 93005; 96365; 96366; 96368; 96375; 99285; J0694; J0696; J1170; J2405; J3010; J3480; J3490; J7030; J7060; Q9967; G0378

== ENCOUNTER 2020-06-07 22:38 | Emergency (ER) | payer SELFPAY ==
[~2020-06-07] VITALS: Ht 152.4 cm; Wt 77.9 kg
[~2020-06-07 22:38] MED LIST changes: +DOXY100T PO; +METR-34 PO
[2020-06-07] MEDS ORDERED: IV NORMAL SALINE 1000ML BAG 1,000 ML IV ONE (23:00)
--- NOTE | 2020-06-07 23:03 | PHYS DOC ---
Past Medical History Past Medical History: Anxiety, Asthma, Depression, Seizure, Other Additional Past Medical Histor: EPILEPSY Past Surgical History: Other Additional Past Surgical Histo: WISDOM TEETH Smoking Status: Current Every Day Smoker Alcohol Use: None Drug Use: Marijuana General Adult EDM: Chief Complaint: SEIZURE HPI: HPI: Patient is a 24-year-old female who was brought here by EMS from home due to multiple convulsion episodes. Patient has history of an epileptic seizure in the past. She was evaluated already by neurologist, ruled out seizure disorder. 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 Patient has history of anxiety depression, her anxiety medication was recently changed to a higher dose. Patient said she came home from work today, felt really tired. Then while she was in bed, she started having convulsion. So her boyfriend called EMS to take her here for evaluation. Patient denies any cough or fever, no abdominal pain, no nausea vomiting. Review of Systems: Review of Systems: Constitutional: Denies fever or chills. [] Eyes: Denies change in visual acuity. [] HENT: Denies nasal congestion or sore throat. [] Respiratory: Denies cough or shortness of breath. [] Cardiovascular: Denies chest pain or edema. [] GI: Denies abdominal pain, nausea, vomiting, bloody stools or diarrhea. [] : Denies dysuria. [] Musculoskeletal: Denies back pain or joint pain. [] Integument: Denies rash. [] Neurologic: Denies headache, focal weakness or sensory changes. Positive for seizure activity. Endocrine: Denies polyuria or polydipsia. [] Lymphatic: Denies swollen glands. [] Psychiatric: Denies depression or anxiety. Denies suicidal ideation. Heart Score: C/O Chest Pain: N/A Risk Factors: Risk Factors: DM, Current or recent (<one month) smoker, HTN, HLP, family history of CAD, obesity. Risk Scores: Score 0 - 3: 2.5% MACE over next 6 weeks - Discharge Home Score 4 - 6: 20.3% MACE over next 6 weeks - Admit for Clinical Observation Score 7 - 10: 72.7% MACE over next 6 weeks - Early Invasive Strategies Current Medications: Current Medications Medications (Trade) Dose Ordered Sig/Sridhar Start Time Stop Time Status Last Admin Dose Admin Sodium Chloride 1,000 ml @ 1,000 mls/hr 1X ONCE 06/07/20 23:00 06/07/20 23:59 Allergies: Allergies: Allergies Coded Allergies Type Severity Reaction Last Updated Verified naproxen Allergy Intermediate NAUSEA VOMITING 01/25/17 Yes Physical Exam: PE: Constitutional: Well developed, well nourished, no acute distress, non-toxic appearance. [] HENT: Normocephalic, atraumatic, bilateral external ears normal, oropharynx moist, no oral exudates, nose normal. [] Eyes: PERRLA, EOMI, conjunctiva normal, no discharge. [] Neck: Normal range of motion, no tenderness, supple, no stridor. [] Cardiovascular:Heart rate regular rhythm, no murmur [] Lungs & Thorax: Bilateral breath sounds clear to auscultation [] Abdomen: Bowel sounds normal, soft, no tenderness, no masses, no pulsatile masses. [] Skin: Warm, dry, no erythema, no rash. [] Back: No tenderness, no CVA tenderness. [] Extremities: No tenderness, no cyanosis, no clubbing, ROM intact, no edema. [] Neurologic: Alert and oriented X 3, normal motor function, normal sensory function, no focal deficits noted. [] Psychologic: Affect normal, judgement normal, mood normal. [] Current Patient Data: Labs: Laboratory Tests Test 06/07/20 23:10 06/08/20 01:00 White Blood Count 5.9 x10^3/uL Red Blood Count 4.36 x10^6/uL Hemoglobin 12.9 g/dL Hematocrit 37.9 % Mean Corpuscular Volume 87 fL Mean Corpuscular Hemoglobin 30 pg Mean Corpuscular Hemoglobin Concent 34 g/dL Red Cell Distribution Width 13.3 % Platelet Count 264 x10^3/uL Neutrophils (%) (Auto) 53 % Lymphocytes (%) (Auto) 35 % Monocytes (%) (Auto) 10 % Eosinophils (%) (Auto) 2 % Basophils (%) (Auto) 1 % Neutrophils # (Auto) 3.1 x10^3/uL Lymphocytes # (Auto) 2.1 x10^3/uL Monocytes # (Auto) 0.6 x10^3/uL Eosinophils # (Auto) 0.1 x10^3/uL Basophils # (Auto) 0.0 x10^3/uL Sodium Level 143 mmol/L Potassium Level 3.7 mmol/L Chloride Level 106 mmol/L Carbon Dioxide Level 28 mmol/L Anion Gap 9 Blood Urea Nitrogen 15 mg/dL Creatinine 0.8 mg/dL Estimated GFR (Cockcroft-Gault) 87.4 BUN/Creatinine Ratio 19 Glucose Level 104 mg/dL Calcium Level 8.7 mg/dL Magnesium Level 2.1 mg/dL Total Bilirubin 0.2 mg/dL Aspartate Amino Transf (AST/SGOT) 15 U/L Alanine Aminotransferase (ALT/SGPT) 27 U/L Alkaline Phosphatase 58 U/L Creatine Kinase 149 U/L Total Protein 6.9 g/dL Albumin 3.8 g/dL Albumin/Globulin Ratio 1.2 Bedside Urine HCG, Qualitative Hcg negative Current Medications Medications (Trade) Dose Ordered Sig/Sridhar Route PRN Reason Start Time Stop Time Status Last Admin Dose Admin Sodium Chloride 1,000 ml @ 1,000 mls/hr 1X ONCE IV 06/07/20 23:00 06/07/20 23:59 DC 06/07/20 23:26 Lorazepam (Ativan Inj) 1 mg 1X ONCE IVP 06/08/20 00:45 06/08/20 00:48 DC 06/08/20 00:55 EKG: EKG: [] Radiology/Procedures: Radiology/Procedures: [] Course & Med Decision Making: Course & Med Decision Making Pertinent Labs and Imaging studies reviewed. (See chart for details) Patient is a 24-year-old female who was brought here by EMS from home due to multiple convulsion episodes. Patient has history of an epileptic seizure in the past. She was evaluated already by neurologist, ruled out seizure disorder. 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 Patient has history of anxiety depression, her anxiety medication was recently changed to a higher dose. Patient said she came home from work today, felt really tired. Then while she was in bed, she started having convulsion. So her boyfriend called EMS to take her here for evaluation. Patient denies any cough or fever, no abdominal pain, no nausea vomiting. She was tested positive for marijuana cocaine and methamphetamine. Patient was given 1 mg of Ativan in the ER because she was anxious. She slept the whole time here, no seizure activity noted. Patient will be discharged home, she will need to follow-up with her family doctor or follow-up with neurology for further evaluation and treatment. Patient is amenable to plan of care Brielle Disclaimer: Brielle Disclaimer: This electronic medical record was generated, in whole or in part, using a voice recognition dictation system. Departure Departure Impression: Primary Impression: Seizure Additional Impression: Substance abuse Disposition: HOME / SELF CARE / HOMELESS Condition: IMPROVED Referrals: JUAN RAMON GUPTA MD (PCP) Follow up with your doctor in 2 days for reevaluation JUSTICE RAJAN MD please follow up with this neurologist for outpatient evaluation. Patient Instructions: Nonepileptic Seizures, Substance Abuse-Brief Additional Instructions: Thank you for visiting our Emergency Department. We appreciate you trusting us with your care. If any additional problems come up don't hesitate to return to visit us. Please follow up with your primary care provider so they can plan additional care if needed and know about the problem that you had. If symptoms worsen come back to the Emergency Department. Any concerning symptoms that start such as chest pain, shortness of air, weakness or numbness on one side of the body, running high fevers or any other concerning symptoms return to the ER. KYREE STEPHENS DO June 07, 2020 23:03
[2020-06-07 23:22] LABS: BASO % 1 % (0-3); EOS # 0.1 x10^3/uL (0.0-0.7); EOS % 2 % (0-3); HEMATOCRIT 37.9 % (36.0-47.0); HEMOGLOBIN 12.9 g/dL (12.0-15.5); LYMPH # 2.1 x10^3/uL (1.0-4.8); LYMPH % 35 % (24-48); MEAN CORPUSCULAR HEMOGLOBIN 30 pg (25-35); MEAN CORPUSCULAR HGB CONC 34 g/dL (31-37); MEAN CORPUSCULAR VOLUME 87 fL (79-100); MONO # 0.6 x10^3/uL (0.0-1.1); MONO % 10 % (0-9); NEUT # 3.1 x10^3/uL (1.8-7.7); NEUT % 53 % (31-73); PLATELET COUNT 264 x10^3/uL (140-400); RED BLOOD COUNT 4.36 x10^6/uL (3.50-5.40); RED CELL DISTRIBUTION WIDTH 13.3 % (11.5-14.5); WHITE BLOOD COUNT 5.9 x10^3/uL (4.0-11.0)
[2020-06-07 23:30] LABS: CALCIUM 8.7 mg/dL (8.5-10.1); CREATININE 0.8 mg/dL (0.6-1.0); GFR 87.4; POTASSIUM 3.7 mmol/L (3.5-5.1)
[2020-06-07 23:36] LABS: ALBUMIN 3.8 g/dL (3.4-5.0); ALBUMIN/GLOBULIN RATIO 1.2 (1.0-1.7); MAGNESIUM 2.1 mg/dL (1.8-2.4); TOTAL BILIRUBIN 0.2 mg/dL (0.2-1.0); TOTAL PROTEIN 6.9 g/dL (6.4-8.2)
[2020-06-08 01:07] LABS: BILIRUBIN,URINE NEGATIVE (NEG); CLARITY,URINE CLEAR; COLOR,URINE YELLOW; NITRITE,URINE NEGATIVE (NEG); PH,URINE 6.5 (<5.0-8.0); PROTEIN,URINE NEGATIVE (NEG-TRACE)
[2020-06-08 01:11] LABS: U PREG PATIENT NEGATIVE (NEG)
[2020-06-08 01:14] LABS: BACTERIA,URINE FEW /HPF (0-FEW); RBC,URINE 0 /HPF (0-2); WBC,URINE OCC /HPF (0-4)
[2020-06-08 01:15] LABS: BARBITURATES NEG (NEG); BENZODIAZEPINES NEG (NEG); CANNABINOIDS POS (NEG); COCAINE POS (NEG); METHADONE NEG (NEG); OPIATES NEG (NEG); PHENCYCLIDINE NEG (NEG)
[2020-06-08 01:16] LABS: AMPHETAMINE/METHAMPHETAMINE POS (NEG)
[2020-06-08 03:13] VITALS: BP 89/51
== END 2020-06-08 03:20 | disposition home or self-care (01) ==
LOC: ER 22:38
DX: G40.909 Epilepsy, unspecified, not intractable, without status epilepticus (principal); F19.10 Other psychoactive substance abuse, uncomplicated; J45.909 Unspecified asthma, uncomplicated; F17.200 Nicotine dependence, unspecified, uncomplicated; F32.9 Major depressive disorder, single episode, unspecified; F41.9 Anxiety disorder, unspecified; Z88.5 Allergy status to narcotic agent
CPT/HCPCS: 36415; 80053; 80307; 81001; 81025; 82550; 83735; 85025; 96361; 96374; 99285; J2060; J7030

== ENCOUNTER 2021-01-01 13:23 | Emergency (ER) | payer BC ==
[~2021-01-01] VITALS: Ht 152.4 cm; Wt 86.6 kg
[~2021-01-01 13:23] MED LIST changes: +CYCL10TA19 PO; -CYCL10TA2 PO
[2021-01-01] MEDS ORDERED: SERT-268 PO (14:52)
[2021-01-01] MEDS ORDERED: ARIP10TA9 PO (14:52)
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
[2021-01-01] MEDS ORDERED: ACETAMINOPHEN 500 MG TABLET PO ONE (15:00)
--- NOTE | 2021-01-01 15:41 | RAD ---
EXAM: Right knee, 3 views; right elbow, 3 views. HISTORY: Fall. COMPARISON: None. FINDINGS: Right knee: 3 views of the right knee are obtained. There is no fracture, dislocation or subluxation. There is no joint effusion. Right elbow: 3 views of the right elbow are obtained. There is no fracture, dislocation or subluxatio n. There is no joint effusion. IMPRESSION: No acute osseous finding. Electronically signed by: Monique Pratt MD (01/01/2021 3:38 PM) [id number]
[2021-01-01 15:52] VITALS: BP 108/65
== END 2021-01-01 16:40 | disposition home or self-care (01) ==
LOC: ER 13:23
DX: M25.561 Pain in right knee (principal); M25.521 Pain in right elbow; J45.909 Unspecified asthma, uncomplicated; F31.9 Bipolar disorder, unspecified; F20.9 Schizophrenia, unspecified; G40.909 Epilepsy, unspecified, not intractable, without status epilepticus; F17.200 Nicotine dependence, unspecified, uncomplicated; Z88.5 Allergy status to narcotic agent
CPT/HCPCS: 73080; 73562; 81025; 99284; A6450

== ENCOUNTER 2021-04-13 08:28 | Emergency (ER) | payer SELFPAY ==
[~2021-04-13] VITALS: Ht 152.4 cm; Wt 86.3 kg
[~2021-04-13 08:28] MED LIST changes: +ARIP10TA9 PO; +SERT-268 PO
--- NOTE | 2021-04-13 08:36 | PHYS DOC ---
Past Medical History Past Medical History: Anxiety, Asthma, Bipolar, Depression, Seizure, Schi zophrenia, Other Additional Past Medical Histor: non-epileptic seizures Past Surgical History: No Surgical History Additional Past Surgical Histo: WISDOM TEETH Smoking Status: Current Every Day Smoker Alcohol Use: Rarely Drug Use: None, Marijuana General Adult EDM: Chief Complaint: ABDOMINAL PAIN HPI: HPI: Patient is a 25 year old female who presents with almost 2 weeks of diffuse lower abdominal and pelvic pain. She denies nausea, vomiting, anorexia. She denies constipation or diarrhea. She does report that she has pelvic pain when she urinates as well as mild dysuria. She denies urgency, frequency or gross hematuria. She denies vaginal discharge or bleeding. She reports the pain began around the time of her last menstrual cycle. She reports that she only had bleeding for about 2 or 3 days. She denies fevers or chills. She denies radiation of pain, denies back or flank pain. She has been seen here previously for similar symptoms. Review of Systems: Review of Systems: Constitutional: Denies fever or chills. [] HENT: Denies nasal congestion or sore throat. [] Respiratory: Denies cough or shortness of breath. [] Cardiovascular: Denies chest pain or edema. [] GI: Diffuse lower abdominal and pelvic pain. Denies nausea, vomiting, diarrhea, constipation : Pelvic pain. Reports pelvic pain with urination, dysuria, denies urgency, frequency or gross hematuria. Denies current vaginal bleeding. Denies vaginal discharge. Musculoskeletal: Denies back pain or joint pain. [] Integument: Denies rash. [] Neurologic: Denies headache, focal weakness or sensory changes. [] Psychiatric: Denies depression or anxiety. [] Heart Score: C/O Chest Pain: No Risk Factors: Risk Factors: DM, Current or recent (<one month) smoker, HTN, HLP, family history of CAD, obesity. Risk Scores: Score 0 - 3: 2.5% MACE over next 6 weeks - Discharge Home Score 4 - 6: 20.3% MACE over next 6 weeks - Admit for Clinical Observation Score 7 - 10: 72.7% MACE over next 6 weeks - Early Invasive Strategies Allergies: Allergies: Allergies Coded Allergies Type Severity Reaction Last Updated Verified naproxen Adverse Reaction Intermediate NAUSEA VOMITING 06/08/20 Yes Physical Exam: PE: Constitutional: Well developed, well nourished, no acute distress, non-toxic appearance. [] HENT: Normocephalic, atraumatic Eyes: Sclera are clear and anicteric Neck: Trachea midline Cardiovascular:Heart rate regular rhythm, was 2 radial and +2 posterior tibial pulses bilaterally Lungs & Thorax: Bilateral breath sounds clear to auscultation [] Abdomen: Abdomen is obese, hirsute, nondistended, diffusely tender to palpation in the lower pelvic area, suprapubic, left lower quadrant right lower quadrant. Mild and inconsistent voluntary guarding, no rebound tenderness, no involuntary guarding, no rigidity. Normal bowel sounds. No CVA tenderness. No flank abdominal ecchymoses. No palpable organomegaly or masses noted. Skin: Warm, dry, no erythema, no rash. [] Back: No tenderness, no CVA tenderness. [] Extremities: No tenderness, no cyanosis, no clubbing, ROM intact, no edema. No calf tenderness. Neurologic: Alert and oriented X 3, normal motor function, normal sensory function, no focal deficits noted. [] Psychologic: Affect is flat. EKG: EKG: [] Radiology/Procedures: Radiology/Procedures: IMAGING REPORT Signed PATIENT: BRITTANEY CAZARES MACCOUNT: [id number] : 1995 LOCATION: ER AGE: 25 SEX: F EXAM STATUS: PRE ER ORD. PHYSICIAN: BANG NIEVES DO REASON: pelvic pain PROCEDURE: PELVIS COMPLETE US PELVIS COMPLETE Clinical Indication: Reason: pelvic pain / Spl. Instructions: / History: Comparison: Pelvic ultrasound October 06, 2019. TECHNIQUE: Real-time ultrasound imaging of the pelvis using transabdominal window is performed. Findings: Small nabothian cysts are redemonstrated. Uterus measures 8.9 x 5.7 x 4 cm. No focal abnormality of the myometrium. The endometrial stripe is normal measuring 9 mm. The ovaries are similar in size and demonstrate normal blood flow. No evidence of adnexal mass. No pelvic free fluid is identified. IMPRESSION: 1. Uterus and ovaries are normal. 2. Small nabothian cysts. Electronically signed by: Robby Holt MD (04/13/2021 9:24 AM) [id number] DICTATED and SIGNED BY: ROBBY HOLT MD DATE: 04/13/21 [id number] 0 Course & Med Decision Making: Course & Med Decision Making Pertinent Labs and Imaging studies reviewed. (See chart for details) IV fluids and IV fentanyl given for pain here. Ultrasound is unremarkable for any acute surgical offending pathology. She does have large leuks, significant pyuria and bacteria on UA. She will be treated for cystitis. She has a benign, nonsurgical abdominal exam. I discussed the findings, differential diagnosis and plan of care with her. I told her to follow-up with her primary care physician for further evaluation and treatment. She understands that her urine culture is pending, and if there is any need to change antibiotics based on this, she will be contacted, within about 48 hours. Return precautions are given. Dragon Disclaimer: Dragon Disclaimer: This electronic medical record was generated, in whole or in part, using a voice recognition dictation system. Departure Departure Impression: Primary Impression: UTI (urinary tract infection) Additional Impression: Pelvic pain Disposition: 01 HOME / SELF CARE / HOMELESS Condition: STABLE Referrals: JUAN RAMON GUPTA MD (PCP) Patient Instructions: Urinary Tract Infection Additional Instructions: Take the full course of antibiotics as directed. Use the pain medicine as needed/as directed. Please return to the ER for more severe pain, especially localized right or left-sided pain, uncontrolled vomiting, dehydration te mperature of 100.4 or higher, severe back or flank pain or for any other concerns. Your urine culture is pending, and if there is any need to change antibiotics based on this culture result, you should be notified in about 2 days. Please contact your primary care physician for follow-up. Scripts Phenazopyridine Hcl (PYRIDIUM) 200 Mg Tablet 1 TAB PO PRN TID PRN for painful urination for 2 Days, #6 TAB 0 Refills Prov: BANG NIEVES DO 04/13/21 Hydrocodone Bit/Acetaminophen (HYDROCODONE-APAP 5-325 ) 1 Tab Tablet 1 TAB PO PRN Q6HRS PRN for PAIN, #10 TAB 0 Refills Prov: LIZBETHDORIANN M DO 04/13/21 Cephalexin (CEPHALEXIN) 500 Mg Tablet 1 TAB PO BID for 7 Days, #14 TAB Prov: LIZBETHDORIANN M DO 04/13/21 BANG NIEVES DO Apr 13, 2021 08:35
[2021-04-13] MEDS ORDERED: IV NORMAL SALINE 1000ML BAG 1,000 ML IV ONE (08:45)
[2021-04-13] MEDS ORDERED: fentaNYL PF VIAL 100 MCG/2 ML VIAL IVP ONE (08:45)
[2021-04-13 09:14] LABS: BASO % 0 % (0-3); EOS # 0.2 x10^3/uL (0.0-0.7); EOS % 4 % (0-3); HEMATOCRIT 39.8 % (36.0-47.0); LYMPH # 1.5 x10^3/uL (1.0-4.8); LYMPH % 26 % (24-48); MEAN CORPUSCULAR HEMOGLOBIN 28 pg (25-35); MEAN CORPUSCULAR HGB CONC 33 g/dL (31-37); MEAN CORPUSCULAR VOLUME 84 fL (79-100); MONO # 0.5 x10^3/uL (0.0-1.1); MONO % 9 % (0-9); NEUT # 3.6 x10^3/uL (1.8-7.7); NEUT % 62 % (31-73); PLATELET COUNT 315 x10^3/uL (140-400); RED BLOOD COUNT 4.72 x10^6/uL (3.50-5.40); RED CELL DISTRIBUTION WIDTH 14.9 % (11.5-14.5); WHITE BLOOD COUNT 5.9 x10^3/uL (4.0-11.0)
--- NOTE | 2021-04-13 09:26 | RAD ---
US PELVIS COMPLETE Clinical Indication: Reason: pelvic pain / Spl. Instructions: / History: Comparison: Pelvic ultrasound October 06, 2019. TECHNIQUE: Real-time ultrasound imaging of the pelvis using transabdominal window is performed. Findings: Small nabothian cysts are redemonstrated. Uterus measures 8.9 x 5.7 x 4 cm. No focal abnormality of t he myometrium. The endometrial stripe is normal measuring 9 mm. The ovaries are similar in size and demonstrate normal blood flow. No evidence of adnexal mass. No pelvic free fluid is identified. IMPRESSION: 1. Uterus and ovaries are normal. 2. Small nabothian cysts. Electronically signed by: Robby Holt MD (04/13/2021 9:24 AM) [id number]
[2021-04-13 09:27] LABS: BILIRUBIN,URINE NEGATIVE (NEG); CLARITY,URINE CLOUDY; COLOR,URINE YELLOW; NITRITE,URINE NEGATIVE (NEG); PROTEIN,URINE NEGATIVE (NEG-TRACE); WBC,URINE >40 /HPF (0-4)
[2021-04-13 09:28] LABS: CALCIUM 9.3 mg/dL (8.5-10.1); CREATININE 0.7 mg/dL (0.6-1.0); GFR 101.1; POTASSIUM 3.7 mmol/L (3.5-5.1)
[2021-04-13 09:28] LABS: BACTERIA,URINE MODERATE /HPF (0-FEW)
[2021-04-13 09:35] LABS: ALBUMIN 3.8 g/dL (3.4-5.0); ALBUMIN/GLOBULIN RATIO 0.8 (1.0-1.7); TOTAL BILIRUBIN 0.2 mg/dL (0.2-1.0); TOTAL PROTEIN 8.6 g/dL (6.4-8.2)
[2021-04-13] MEDS ORDERED: CEPHALEXIN 250 MG CAPSULE. PO ONE (09:45)
[2021-04-13] MEDS ORDERED: PHEN-318 PO (09:47)
[2021-04-13] MEDS ORDERED: CEPH500T PO (09:47)
[2021-04-13] MEDS ORDERED: HYDR-2761 PO (09:47)
[2021-04-13 10:15] VITALS: BP 120/66
== END 2021-04-13 10:20 | disposition home or self-care (01) ==
LOC: ER 08:28
DX: N39.0 Urinary tract infection, site not specified (principal); R10.2 Pelvic and perineal pain; J45.909 Unspecified asthma, uncomplicated; F20.9 Schizophrenia, unspecified; F17.200 Nicotine dependence, unspecified, uncomplicated; F31.9 Bipolar disorder, unspecified; Z88.5 Allergy status to narcotic agent
CPT/HCPCS: 36415; 76856; 80053; 81001; 81025; 83690; 85025; 87086; 96361; 96374; 99284; J3010; J7030